=== PATIENT | female | born 1980 | race Caucasian/White ===

== ENCOUNTER 2019-07-25 08:22 | Day surgery (SDC) | payer OTHER ==
[2019-07-25] MEDS ORDERED: CEFAZOLIN SODIUM 1 GM/VIAL ONE (08:51)
[2019-07-25] MEDS ORDERED: GENTAMICIN SULF 80 MG/2ML INJ ONE (08:52)
[2019-07-25] MEDS ORDERED: BACITRACIN 50000 UNIT VIAL ONE (08:52)
[2019-07-25] MEDS ORDERED: NS 0.9% VIAL 0 ML ONE (08:53)
[2019-07-25] MEDS ORDERED: CEFAZOLIN/SWI 1gm 1 GM/10 ML SYR ONE (08:53)
[2019-07-25] MEDS ORDERED: Ringers Lactate 1,000 ML IV ONE ×3 (08:53→12:39)
[2019-07-25] MEDS ORDERED: SCOPOLAMINE HYDROBROMIDE PATCH TD ONE (08:53)
[2019-07-25] MEDS ORDERED: FENTANYL CITR 250 MCG/5 ML ONE (08:55)
[2019-07-25] MEDS ORDERED: LIDOCAINE 2% MPF 5 ML VIAL ONE (08:55)
[2019-07-25] MEDS ORDERED: ROCURONIUM 50 MG/5 ML VIAL IV ONE (08:55)
[2019-07-25] MEDS ORDERED: dexAMETHasone 10 MG/ML VIAL ONE (08:55)
[2019-07-25] MEDS ORDERED: propofoL 200 MG/20 ML VIAL IV ONE (08:55)
[2019-07-25] MEDS ORDERED: MIDAZOLAM HCL 2 MG/2 ML INJ ONE (08:55)
[2019-07-25] MEDS ORDERED: ONDANSETRON 4 MG/2 ML VIAL ONE ×2 (08:56→14:16)
--- OUTSIDE RECORDS SUMMARY | 2019-07-25 09:09 | XMS REPORT | Summary of Care ---
:1980 Author Name Jennifer Garcia M.A. Address Unavailable Unavailable , Care Team Providers Name Role Phone ALEJANDRA Glez, MARY Unavailable Unavailable BROWN Glez, LORNA Unavailable Unavailable DANITZA Glez, SAMANTHA Unavailable Unavailable BASIL MEADOWS AK, TRACEE Unavailable Unavailable Lorna Mason MD Unavailable Unavailable ALEJANDRA MEADOWS [place], MARY HUMPHRIES Unavailable Unavailable Unavailable Unavailable Unavailable Functional Status Name Dates Details Functional status health issues are not documented Status: Name Dates Details Cognitive status health issues are not documented Status: Problems Name Dates Details Paroxysmal supraventricular tachycardia (427.0, I47.1) Status: Active Vitamin D deficiency (268.9, E55.9) Stat us: Active Breast lump on left side at 6 o'clock position (611.72, N63. 20) Status: Active Vaginal bleeding, abnormal (623.8, N93.9) Status: Active Metrorrhagia (626.6, N92.1) Status: Acti ve Bacterial vaginosis (616.10, N76.0) Stat us: Active Encounter for well woman exam with routine gynecologic al exam (V72.31, Z01.419) Status: Active Vaginal discharge (623.5, N89.8) Status: Active Recurrent UTI (599.0, N39.0) Status: Act nghia History of kidney stones (V13.01, Z87.442) Status: Active Bladder pain (788.99, R39.89) Status: Ac tive Dysuria (788.1, R30.0) Status: Active Gross hematuria (599.71, R31.0) Status: Active Interstitial cystitis (595.1, N30.10) St atus: Active IC (interstitial cystitis) (595.1, N30.10) Status: Active Vaginal ulcer (616.89, N76.5) Status: Ac tive Screening for STD (sexually transmitted disease) (V74.5, Z11 .3) Status: Active Herpes (054.9, B00.9) Status: Active Dizziness (780.4, R42) Status: Active Nausea (787.02, R11.0) Status: Active Acute intractable headache, unspecified headache type (784.0 , R51) Status: Active Nasal deformity (738.0, M95.0) Status: A ctive Nasal obstruction (478.19, J34.89) Statu s: Active Nasal septal deviation (470, J34.2) Stat us: Active Closed fracture of nasal bone, initial encounter (802.0, S02 .2XXA) Status: Active Right shoulder pain (719.41, M25.511) St atus: Active Medications Name Dates Details Uribel 118 MG Oral Capsule Take one tablet every 6 hours as needed Quantity: 360 Refills: 3 SAMANTHA BOSCH M.D. Start : 10-Oct-2016 Active valACYclovir HCl - 500 MG Oral Tablet TAKE ONE (1) TABLET(S) BY MOUTH ONCE A DAY. Quantity: 30 Refills: 11 MARY ROBERTS M.D. Start : 10-Jul-2017 Active Ibuprofen 800 MG Oral Tablet Refills: 0 Start : 19-Dec-2018 Active Cyclobenzaprine HCl - 10 MG Oral Tablet Refills: 0 Start : 19-Dec-2018 Active Allergies and Adverse Reactions Name Dates Details No Known Allergies (Allergy) Status: Act nghia Past Medical History Name Dates Details History of Acute recurrent sinusitis (461.9, J01.91) Status: Resolved History of Adjustment disorder with anxiety (309.24, F43.22) Status: Resolved History of asthma (V12.69, Z87.09) Statu s: Resolved History of breast lump (V13.89, Z87.898) Status: Resolved History of Cervicalgia (723.1, M54.2) St atus: Resolved History of fatigue (V13.89, Z87.898) Sta tus: Resolved History of 4 Status: Resolved History of Leg swelling (729.81, M79.89) Status: Resolved History of low back pain (V13.59, Z87.39) Status: Resolved History of Menarche (V21.8) Status: Reso lved History of Neck sprain (847.0, S13.9XXA) Status: Resolved History of Pain, lower leg (729.5, M79.669) Status: Resolved History of Pap smear for cervical cancer screening (V76.2, Z 12.4) Status: Resolved History of renal calculi (V13.01, Z87.442) Status: Resolved Personal history of asthma (V12.69, Z87.09) Status: Resolved Procedures Procedure Dates Details [U] XRAY SHOULDER MIN 2 VWS RIGHT [id number] Date: 19-Dec-2018 History of Section Completed History of Breast Surgery Enlargement Procedure Completed History of section Completed History of Breast augmentation Completed History of Endometrial ablation Complete d Immunization Name Dates Details Fluzone Quadrivalent 0.5 ML Intramuscular Suspension Prefill ed Syringe on: 2017 Family History Name Dates Details Family history of Mitochondrial disease (359.89, E88.40) Comments: Family History Status: Active Name Dates Details Family history of Mitochondrial disease (359.89, E88.40) Status: Active Name Dates Details Family history of asthma (V17.5, Z82.5) Status: Active Family history of Allergy (995.3, T78.40XA) Status: Active Name Dates Details Family history of diabetes mellitus (V18.0, Z83.3) Status: Active Family history of thyroid disease (V18.19, Z83.49) Status: Active Family history of Urinary incontinence (788.30, R32) Status: Active Family history of Fecal incontinence (787.60, R15.9) Status: Active Name Dates Details Family history of Asthma (V17.5) Status: Active Family history of asthma (V17.5, Z82.5) Status: Active Family history of Allergy (995.3, T78.40XA) Status: Active Social History Name Dates Details - Status: Name Dates Details Never smoker Never smoker Vital Signs Date Test Result Details No Known Vitals to report Results Date Description Value Details Results not documented Plan of Care Name Dates Details Planned Observations Planned Goals not documented Interventions Provided Labs/Procedures/Imaging[U] XRAY SHOULDER MIN 2 VWS RIGHT [id number]; To Be Done: 19 Dec 2018 Instructions Name Dates Details Instructions not documented Encounters Appointment; CLAUDIA ALARCON NP On: 06-Jan-2017 15:20 Encounter Diagnosis: Problem not documented Appointment; MARY ROBERTS M.D. On: 08-Feb-2017 14:30 Encounter Diagnosis: Problem not documented Appointment; RENÉE CASTILLO NP On: 14-Sep-2017 13:0 0 Encounter Diagnosis: Problem not documented Appointment; MERARI TIPTON M.D. On: 21-Dec-2017 15:30 Encounter Diagnosis: Problem not documented Appointment; MARY ROBERTS M.D. On: 13-Aug-2018 15:30 Encounter Diagnosis: Problem not documented Appointment; LORNA MASON M.D. On: 19-Dec-2018 14:0 0 Encounter Diagnosis: Problem not documented
--- OUTSIDE RECORDS SUMMARY | 2019-07-25 09:09 | XMS REPORT ---
:1980 Author Organization [facility] t Address [address] [place] [address] Care Team Providers Name Role Phone DR DANUTA Attending Clinician Unavailable BROWN Attending Clinician Unavailable ALEJANDRA Attending Clinician Unavailable DANUTA Attending Clinician Unavailable JONATHAN Attending Clinician Unavailable DORIAN Attending Clinician Unavailable DANITZA Attending Clinician Unavailable UROGYN1 Attending Clinician Unavailable BASIL Attending Clinician Unavailable DR DANUTA Admitting Clinician Unavailable Problems Condition Condition Condition Status Onset Resolution Last Treating Co mments Source Name Details Category Date Date Treatment Clinician Date History of History of Problem Resolve Univers Acute Acute [place] sinus[place] sinus[place] Phys ici ans History of History of Problem Resolve Univers Adjustment Adjustment d it y of disorder disorder [place] with with Physici anxiety anxiety ans Personal Personal Problem Resolve Univ ers history of history of d it y of asthma asthma [place] Physici ans History of History of Problem Resolve Univers fatigue fatigue d ity of [place] Physici ans History of History of Problem Resolve Univers Cervicalgi Cervicalgi d it y of a a [place] Physici ans History of History of Problem Resolve Univers 4 4 d ity of [place] Physici ans History of History of Problem Resolve Univers Leg Leg d ity of swelling swelling [place] Phys[facility] ans History of History of Problem Resolve Univers Menarche Menarche d ity of [place] Physici ans History of History of Problem Resolve Univers Neck Neck d ity of sprain sprain [place] Phys[facility] ans History of History of Problem Resolve Univers Pain, Pain, d ity of lower leg lower leg [place] Phys[place] ans History of History of Problem Active U nivers kidney kidney ity of stones stones [place] Physici ans Paroxysmal Paroxysmal Problem Active U nivers supraventr supraventr it y of icular icular [place] tachycardi tachycardi Ph ysici a a ans Vitamin D Vitamin D Problem Active Uni vers deficiency deficiency it y of [place] Physici ans Breast Breast Problem Active Univers lump on lump on ity of left side left side [place] at 6 at 6 Physici o'clock o'clock ans position position Vaginal Vaginal Problem Active Univers bleeding, bleeding, ity of abnormal abnormal [place] Physici ans Metrorrhag Metrorrhag Problem Active U nivers ia ia ity of [place] Physici ans Bacterial Bacterial Problem Active Uni vers vaginosis vaginosis ity of [place] Phys[facility] ans Vaginal Vaginal Problem Active Univers discharge discharge ity of [place] Physici ans Recurrent Recurrent Problem Active Uni vers UTI UTI ity of [place] Physici ans Bladder Bladder Problem Active Univers pain pain ity of [place] Physici ans Dysuria Dysuria Problem Active Univers ity of [place] Physici ans Gross Gross Problem Active Univers hematuria hematuria ity of [place] Physici ans IC IC Problem Active Univers (interstit (interstit it y of ial ial [place] cystitis) cystitis) Phys ici ans Vaginal Vaginal Problem Active Univers ulcer ulcer ity of [place] Physici ans Screening Screening Problem Active Uni vers for STD for STD ity of (sexually (sexually [place] transmitte transmitte Ph ysici d disease) d disease) an s Herpes Herpes Problem Active Univers ity of [place] Physici ans History of History of Problem Resolve Univers low back low back d ity of pain pain [place] Physici ans Dizziness Dizziness Problem Active Uni vers ity of [place] Physici ans Nausea Nausea Problem Active Univers ity of [place] Physici ans Acute Acute Problem Active Univers intractabl intractabl it y of e e [place] headache, headache, Phys ici unspecifie unspecifie an s d headache d headache type type Nasal Nasal Problem Active Univers deformity deformity ity of [place] Physici ans Nasal Nasal Problem Active Univers obstructio obstructio it y of n n [place] Physici ans Nasal Nasal Problem Active Univers septal septal it[place] of deviation deviation [place] ans Closed Closed Problem Active Univers fracture fracture ity of of nasal of nasal [place] bone, bone, Physici initial initial ans encounter encounter Right Right Problem Active Univers shoulder shoulder ity of pain pain [place] Physici ans Allergies, Adverse Reactions, Alerts This patient has no known allergies or adverse reactions. Family History Family Member Diagnosis Comments Start Date Stop Date Source Unknown Family Family history of Family History University of Member Mitochondrial [place] disease Physicians natural daughter Family history of U niversity of Mitochondrial [place] disease Physicians Grandmother Family history of Univer sity of diabetes mellitus [place] [facility] Grandmother Family history of Univer sity of thyroid disease [place] [facility] Grandmother Family history of Univer sity of Urinary [place] incontinence Physicians Grandmother Family history of Univer sity of Fecal incontinence [place] [facility] Father Family history of Univers ity of Asthma [place] [facility] Father Family history of Univers ity of asthma [place] [facility] Father Family history of Univers ity of Allergy [place] [facility] natural son Family history of Univer sity of asthma [place] [facility] natural son Family history of Univer sity of Allergy [place] [facility] Social History Smoking Status Start Date Stop Date Source Never smoker [facility] [place] [facility] Medications Ordered Filled Start Stop Current Ordering Indication Dosage Frequency Signature Comments Components Source Medication Medication Date Date Medication? Clinician (SIG) Name Name Ibuprofen Ibuprofen 2018-03 Yes Uni vers 800 MG Oral 800 MG Oral 0-09 i ty of Tablet Tablet 00:00: [place] 00 Physici ans Cyclobenzap Cyclobenzap 2018-03 Yes Univers rine HCl - rine HCl - 0-09 ity of 10 MG Oral 10 MG Oral 00:00: [place] Tablet Tablet 00 Physici ans valACYclovi valACYclovi Yes MARY 1 QD TAKE ONE Univers r HCl - 500 r HCl - 500 4-30 HEAPS M.D. (1) ity of MG Oral MG Oral 00:00: [place]T(S) [place] Tablet Tablet 00 BY MOUTH Physici ONCE A ans DAY. Uribel 118 Uribel 118 Yes SAMANTHA Take one Univers MG Oral MG Oral 7-31 DERESKA tablet ity of Capsule Capsule 00:00: M.D. every 6 [place] 00 hours as Physici needed ans Immunizations Ordered Immunization Filled Immunization Date Status Commen ts Source Name Name Fluzone Quadrivalent Unknown Completed Univ ersity of 0.5 ML [facility] Suspension Prefilled Syringe Vital Signs Vital Name Observation Time Observation Value Comments Source BP Systolic 2018-08-13 124 mm[Hg] Location: [facility] 16:02:00 Position: [place] Physician s Sitting BP Diastolic 2018-08-13 75 mm[Hg] Location: [facility] 16:02:00 Position: [place] Physician s Sitting Height 2018-08-13 63 [in_us] [facility] 16:02:00 [place] Phys[facility] s Weight 2018-08-13 146.5 [lb_av] [facility] 16:02:00 [place] Physician s Body Mass Index 2018-08-13 25.95 kg/m2 University o f Calculated 16:02:00 [place] Physician s BP Systolic 2017-12-21 114 mm[Hg] Location: [facility]; [facility] 15:37:00 Position: [place] Physician s Sitting BP Diastolic 2017-12-21 64 mm[Hg] Location: [facility]; [facility] 15:37:00 Position: [place] Physician s Sitting Height 2017-12-21 63 [in_us] University of 15:37:00 [place] Physician s Weight 2017-12-21 144.5 [lb_av] University of 15:37:00 [place] Physician s Body Mass Index 2017-12-21 25.6 kg/m2 University o f Calculated 15:37:00 [place] Physician s Temperature 2017-12-21 97.3 [degF] Method: Oral University of 15:37:00 [place] Physician s Heart Rate 2017-12-21 79 /min Quality: University 15:37:00 Regular [place] Physician s BP Systolic 2017-09-14 114 mm[Hg] University of 13:16:00 [place] Physician s BP Diastolic 2017-09-14 75 mm[Hg] University of 13:16:00 [place] Physician s Height 2017-09-14 63 [in_us] University of 13:16:00 [place] Physician s Weight 2017-09-14 140.375 [lb_av] University o f 13:16:00 [place] Physician s Body Mass Index 2017-09-14 24.87 kg/m2 University o f Calculated 13:16:00 [place] Physician s Temperature 2017-09-14 98 [degF] Method: Oral [facility] 13:16:00 [place] Physician s Heart Rate 2017-09-14 88 /min University of 13:16:00 [place] Physician s BP Systolic 2017-02-08 124 mm[Hg] Location: [facility]; [facility] 14:44:00 Position: [place] Physician s Sitting BP Diastolic 2017-02-08 77 mm[Hg] Location: [facility]; [facility] 14:44:00 Position: [place] Physician s Sitting Height 2017-02-08 63 [in_us] University of 14:44:00 [place] Physician s Weight 2017-02-08 137 [lb_av] University of 14:44:00 [place] Physician s Body Mass Index 2017-02-08 24.27 kg/m2 University o f Calculated 14:44:00 [place] Physician s Procedures Procedure Date / Time Performing Clinician Source Performed [U] XRAY SHOULDER MIN 2 2018-12-19 00:00:00 [facility] VWS RIGHT [id number] Physicians . [facility] - PAP 2018-08-13 00:00:00 [facility] Physicians . [facility] - Affirm VPIII 2017-02-09 00:00:00 [facility] (BV Panel) Physicians . [facility] - GC/Chlamydia 2017-02-09 00:00:00 [facility] Physicians [Q] HIV AB, HIV 1/2, 2017-01-06 00:00:00 [facility] EIA, WITH REFLEXES Physicians [LH] Herpes Simplex 2017-01-06 00:00:00 [facility] Virus 1 and 2 Antibody Physician s IgM [QL] CULTURE, HERPES 2017-01-06 00:00:00 [facility] SIMPLEX VIRUS WITH Physicians TYPING History of University o [facility] Section Physicians History of Breast [facility] Surgery Enlargement Physicians Procedure History of University o [facility] section Physicians History of Breast [facility] augmentation Physicians History of Endometrial [facility] ablation Physicians Encounters Start End Encounter Admission Attending Care Care Encounter Source Date/Time Date/Time Type Type Clinicians Facility Department ID 2018-02-21 Inpatient C MERARI [facility] [id number] 07:30:00 [facility] 2018-12-19 2018-12-19 AppointVICENTA [facility] [id number] Univers 14:00:00 14:00:00 t; LORNA [facility]3] zoraida DASILVA M.D. [facility] Magalys ORTHMAN M.D. [facility] 2018-08-13 2018-08-13 AppointVICENTA Kim [facility] [id number] Univers 15:30:00 15:30:00 t; MARY ROBERTS M.D. [facility] Jyothi HERNANDEZ M.D. [facility] 2017-12-21 2017-12-21 Appointmen MERARI [facility]TP Otorhinolar 4 [id number] Univers 15:30:00 15:30:00 t; Amaris TIPTON yngology - ity zoraida GAGE M.D. [facility] 2017-09-14 2017-09-14 AppointVICENTA Suea [id number] Univers 13:00:00 13:00:00 t; KERLINE CHINCHILLA [facility] ity of [place], [place] KERLINE CHINCHILLA Physi ci ans 2017-02-08 2017-02-08 Appointmen VICENTA ROBERTS Women's [id number] Univers 14:30:00 14:30:00 t; MARY ROBERTS M.D. [place] ity [facility] Amaris Physici ans 2017-01-06 2017-01-06 Appointmen SHAYYCIERRA, [facility] UTP [id number] Univers 15:20:00 15:20:00 t; KERLINE TAYLOR ity [place], [place] KERLINE TAYLOR Physic i ans 2016-11-28 2016-11-28 Appointmen DANITZA, VICENTA YADAV [id number] Univers 14:10:00 14:10:00 t; Amaris SINGH of [place], [place] Amaris SINGH Physi ci ans 2016-11-28 2016-11-28 Appointmen DANITZA, VICENTA UTP [id number] Univers 13:20:00 13:20:00 t; Amaris SINGH [place], [place] Amaris SINGH Physi ci ans 2016-11-16 2016-11-16 Appointmen ALEJANDRA, VICENTA UTP [id number] Univers 13:30:00 13:30:00 t; MARY ROB[facility]. [facility] Physici ans 2016-11-07 2016-11-07 Appointmen DANITZA, VICENTA UTP [id number] Univers 16:30:00 16:30:00 t; Amaris SINGH [place], [place] Amaris SINGH Physi ci ans 2016-11-07 2016-11-07 Appointmen DANITZA, UTP UTP [id number] Univers 16:10:00 16:10:00 t; Amaris SINGH [place], [place] Amaris SINGH Physi ci ans 2016-11-02 2016-11-02 Appointmen ALEJANDRA, VICENTA UTP [id number] Univers 08:00:00 08:00:00 t; MARY [facility]. [facility] 2016-10-26 2016-10-26 Appointmen RAPHAELGLORY, UTP UTP [id number] Univers 13:45:00 13:45:00 t; MARY ROBERTS [facility]. [facility] ans 2016-10-17 2016-10-17 Appointmen UROGYN1, UTP UTP [id number] Univers 14:20:00 14:20:00 t; DERESKA ity of [address] [facility] 2016-09-27 2016-09-27 Appointmen DORIAN, UTP UTP [id number] Univers 15:40:00 15:40:00 t; KERLINE TAYLOR ity [place], [place] KERLINE TAYLOR Physic i ans 2016-09-16 2016-09-16 Appointmen ALEJANDRA, UTP UTP [id number] Univers 09:15:00 09:15:00 t; MARY ROBERTS M.D. [facility] ans 2016-09-05 2016-09-05 Appointmen ALEJANDRA, UTP UTP [id number] Univers 09:00:00 09:00:00 t; MARY ROBERTS M.D. [facility] ans 2016-06-07 2016-06-07 Appointmen ALEJANDRA, UTP UTP [id number] Univers 14:00:00 14:00:00 t; MARY ROBERTS [facility].D. [facility] ans 2016-04-19 2016-04-19 Appointmen BASIL, [facility] UTP [id number] Univers 14:30:00 14:30:00 t; Elver EASLEY M.D. [place] Opal EASLEY M.D. ans 2015-07-01 2015-07-01 Appointmen BASIL, VICENTA UTP [id number] Univers 08:15:00 08:15:00 t; Elver EASLEY M.D. [place] Opal EASLEY M.D. ans Results Test Description Test Time Test Comments Results Result Comments Source [facility] Report 2018-08-13 00:00:00 Test Item Value Reference Range Interpretation Comme nts REPORT (test code = REPORT) See Comment [facility]] CBC (INCLUDES DIFF/PLT)2017-09-14 14:58:01 Test Item Value Reference Range Interpretation Comments WBC (test code = 6690-2) 4.8 {K/CMM} 3.7-10.4 RBC (test code = 789-8) 4.34 {M/CMM} 4.20-5.40 Hgb (test code = 718-7) 13.5 g/dl 12.0-16.0 Hct (test code = 94976-0) 38.6 % 36.0-48.0 MCV (test code = 787-2) 89.0 fL 80.0-98.0 MCH; Above High Threshold (test 31.2 pg 27.0-31.0 code = 785-6) MCHC (test code = 786-4) 35.0 g/dl 32.0-36.0 RDW (test code = 788-0) 13.9 % 11.5-14.5 Platelet (test code = 31780-3) 221 {K/CMM} 133-450 Mean Platelet Volume (test code 8.8 fL 7.4-10.4 = 24762-8) [facility]] [id number] 14:58:01 Test Item Value Reference Range Interpretation Comments Segmented Neutrophils (test code 65.1 % 45.0-75.0 = 75013-3) Monocytes (test code = 50571-0) 8.8 % 2.0-12.0 Lymphocytes (test code = 87044-6) 23.8 % 20.0-40.0 Eosinophils (test code = 51621-0) 1.6 % 0.0-4.0 Basophils (test code = 706-2) 0.7 % 0.0-1.0 Segs-Bands # (test code = 3.1 {K/CMM} 1.5-8.1 83270-8) Lymphocytes # (test code = 1.1 {K/CMM} 1.0-5.5 16121-2) Monocytes # (test code = 26132-9) 0.4 {K/CMM} 0.0-0.8 Eosinophils # (test code = 0.1 {K/CMM} 0.0-0.5 93708-2) [facility]] URINALYSIS, [id number] 14:58:01 Test Item Value Reference Range Interpretation Comments UA Turbidity (test code = 57442-6) Clear Clear UA Spec Grav (test code = 5810-7) 1.013 <=1.030 UA pH (test code = 5803-2) 6.0 5.0-8.0 UA Protein (test code = 65738-1) Negative Negative UA Glucose (test code = 76782-2) Negative Negative UA Ketones (test code = 60662-9) Negative Negative UA Bili (test code = 5770-3) Negative Negative UA Blood (test code = 5794-3) Negative Negative UA Nitrite (test code = 5802-4) Negative Negative UA Leuk Est (test code = 5799-2) Negative Negative UA WBC (test code = 53788-6) <1 0-5 UA Bacteria (test code = 17811-7) Occasional None Seen UA Mucus (test code = 8247-9) Few None Seen UA Sq Epi (test code = 06776-5) Occasional Few UA Color (test code = 5778-6) BLUE UROBILINOGEN (test code = 24663-1) <=1.0 0.1-1.0 [facility]] CMP [id number] 14:58:01 Test Item Value Reference Range Interpretation Comments Sodium Level 137 {mEq/l} 135-145 (test code = 2951-2) Potassium Level 4.2 {mEq/l} 3.5-5.1 (test code = 2823-3) Chloride Level 103 {mEq/l} 95-109 (test code = 2075-0) Carbon Dioxide 27 {mEq/l} 24-32 (test code = 2027-9) AGAP (test code = 11.2 {mEq/l} 10.0-20.0 90527-1) Glucose Lvl (test 79 mg/dl 70-99 Adult refe rence range code = 2345-7) values reflec t the clinical guidel inesof the [place] Diabet es Association. Creatinine Lvl 0.80 mg/dl 0.50-1.40 (test code = 2160-0) Blood Urea 11 mg/dl 7-22 Nitrogen (test code = 3094-0) BUN/Creatinine 14 6-25 Ratio (test code = 3097-3) Total Protein 7.2 g/dl 6.4-8.4 (test code = 2885-2) Albumin Lvl (test 3.8 g/dl 3.5-5.0 code = 1751-7) Globulin (test 3.4 g/dl 2.7-4.2 code = 62109-1) A/G Ratio (test 1.1 0.7-1.6 code = 1759-0) Calcium Level 8.5 mg/dl 8.5-10.5 Total (test code = 18428-2) ALT (test code = 21 u/l 0-65 1743-4) AST (test code = 19 u/l 0-37 48046-0) Bili Total (test 0.4 mg/dl 0.2-1.3 code = 1974-2) Alk Phos (test 61 u/l 39-136 code = 1783-0) eGFR (test code = 94 The eGFR i s calculated 88013-9) {ML/MIN/1.7} using the CKD-E PI formula. In mos t young, healthyindividu als the eGFR will be >9 0 mL/min/1.73m2. The eGFR declines with a ge. AneGFR of 60-89 may be normal in some population s, particularly th e elderly, forwhom the CKD -EPI formula has not been extensively ra idated. Use of the eGFR isnot recommended in the following populations:Ind ividuals with unstable c reatinine concentrations, including patient s and those with seri ous co-morbid conditions.Evelyn ents with extremes in mus keo mass or diet.The darwin a above are obtained fr om the National Kidney Disease Education Progr am(NKDEP) which [place] recommends that when the eGFR is used in patientswith ex tremes of body mass index for purposes of dm g dosing, the eGFR should be multiplied by t he estimated BMI. [facility]] [id number] 14:58:01 Test Item Value Reference Range Interpretation Comments Magnesium Level (test code = 2.3 mg/dl 1.8-2.4 33142-3) [facility]] TSH, 3RD GENERATION W/REFLEX TO FT4 2017-09-14 14:58:01 Test Item Value Reference Range Interpretation Comments TSH (test code = 74879-4) 1.300 {uIU/ml} 0.360-3.740 [facility]] CULTURE, URINE, [id number] 14:58:01 Test Item Value Reference Range Interpretation Comments FINAL REPORT (test code <10,000 CFU/mL Skin = FINAL REPORT) Deanna [facility]. [facility] - [id number] 00:00:00 Test Item Value Reference Range Interpretation Comments GC/Chlamydia REPORT (test code = See Comment GC/Chlamydia REPORT) [facility]. [facility] - HPV High [id number] 00:00:00 Test Item Value Reference Range Interpretation Comments HPV High Risk REPORT (test code = Negative HPV High Risk REPORT) [facility]. [facility] - [id number] 00:00:00 Test Item Value Reference Range Interpretation Comments PAP REPORT (test code = 75857-0) NEGATIVE [facility]. [facility] - HPV High [id number] 00:00:00 Test Item Value Reference Range Interpretation Comments HPV High Risk REPORT (test code = Negative HPV High Risk REPORT) [facility]
[2019-07-25] MEDS ORDERED: LIDOCAINE 1% W/EPI 1:100,000 MDV 20 ML VIAL ONE (09:29)
[2019-07-25] MEDS ORDERED: LIDOCAINE 1% W/EPI 1:100,000 MDV 50 ML VIAL ONE (09:29)
[2019-07-25] MEDS ORDERED: NS 0.9% VIAL 50 ML ONE (09:30)
[2019-07-25] MEDS ORDERED: Phenylephrine HCl 10 MG/ML 1 ML VIAL ONE (09:51)
[2019-07-25] MEDS ORDERED: GLYCOPYRROLATE 0.2 MG/ML SYR ONE (10:11)
[2019-07-25] MEDS ORDERED: FENTANYL CITR 100 MCG/2 ML ONE (11:39)
[2019-07-25] MEDS ORDERED: KETOROLAC 30 MG/ML INJ ONE (13:16)
[2019-07-25] MEDS ORDERED: Mastisol Adhesive Liq ONE (13:18)
[2019-07-25] MEDS ORDERED: HYDROMORPHONE HCL 2 MG/ML inj ONE (14:09)
[2019-07-25] MEDS ORDERED: PROMETHAZINE INJ 25 MG/ML AMP ONE (14:22)
[2019-07-25] MEDS ORDERED: CODEINE 30MG/APAP 300MG TAB ONE (16:28)
[2019-07-25 18:20] VITALS: BP 110/61; TEMP 98; O2SAT 94
--- NOTE | 2019-07-26 09:42 | OP ---
Surgeon: Kobi Gutierrez MD Litigation Assistant: Tacos. Preoperative Diagnosis: Capsular contracture left breast status post prepectoral breast implants. Postoperative Diagnosis: Capsular contracture left breast status post prepectoral breast implants. Procedure Performed: Explantation, left capsulectomy, and breast lift. Anesthesia: General. Procedure In Detail: After satisfactory induction of general anesthesia 1% xylocaine with epinephrin e was use to infiltrate the incision lines in the upper part of the breast bilaterally. Then patient was prepped with Betadine scrub, Betadine paint, dry sterile drapes applied in the usual manner. A 15 blade was used to make an incision. A 42 mm template around the right and left areolas, then solano sverse curvilinear incisions were made. Intervening skin was de-epithelialized with dermabrader or E piCut. Nuñez glands removed with a punch. Then the flap was elevated cephalad. Flap was thinn ed to approximately a centimeter thickness on the right side and by half on the left side. There was very firm capsular contracture on the left side. Flap elevation continued towards the sternum, clav icle, and anterior axillary line. An inferior incision was made and then an incision was made at 12 o'clock position on the left breast, cephalad down to the capsule. Implant was removed with __ then sharp dissection with a scalpel or tenotomy scissors to remove the capsule. It was calcified and quite firm. Patient had on the left side. electrocautery was used for he mostasis and then attention was turned to the right side. and then straps were elevated o n the right breast at 12 o'clock and 1 o'clock position. At 3 o'clock position the straps were then woven in and out the pectoralis major muscle, back to the base of the cone after cone was formed with 2-0 PDS suture. Straps were then elevated, straps were then woven in and out of pectoralis muscle a nd then back to the base of the cone, back to the pectoralis muscle, and back to the base of the cone , tied themselves with 2-0 PDS. This was done from 12 o'clock and 1:30 strap on the right side, and 3 o'clock strap was sewn over the sternum at the 3 o'clock position with 2-0 Ethibond. Mirror image was done on the left side with [place] fascia sutured in place with 3-0 Monocryl, tacking the flap do wn to the periosteum of the ribs . A 10 BEULAH was brought out the axilla. Wound irrigated wi th antibiotic solution. Electrocautery was used for hemostasis and the wounds closed with approximat huy 3 sutures of 3-0 Vicryl were used near the midline of both breasts and then running 3-0 PDS from medial to lateral and lateral to medial, tied in the vertical meridian of the breast. This was done on both sides and patient was sat up. Site for new nipple-areolar complex was marked out. Cored out with a 42 template. Nipples delivered, sewn with interrupted 4-0 PDS, followed by 4-0 PDS running s ubcuticular. Dressings consisted of tincture of benzoin, Steri-Strips, 5 x 5s, fluffs, and Edward wrap. The patient tolerated the procedure well and returned to recovery. DAGMAR/MANDO Voice ID: [id number] Report ID: [id number]
== END 2019-07-25 17:55 | disposition home or self-care (01) ==
LOC: OR 08:22
PROVIDERS: ATTEND Specialist
PROC: 0HPU0JZ Removal of Synthetic Substitute from Left Breast, Open Approach (ICD-10-PCS; 2019-07-25)
PROC: 0H0V0ZZ Alteration of Bilateral Breast, Open Approach (ICD-10-PCS; principal; 2019-07-25 09:00)
DX: T85.44XA Capsular contracture of breast implant, initial encounter (principal); N64.81 Ptosis of breast
CPT/HCPCS: 81025; 88304; 19316; 19371; J2704; J2550; J2370; J1580; J2250; J1170; J3010 ×2; J1100; J0690 ×2; J7120 ×3; J2405 ×2; 88305

== ENCOUNTER 2019-12-12 08:02 | Day surgery (SDC) | payer OTHER ==
[2019-12-12] MEDS ORDERED: SCOPOLAMINE HYDROBROMIDE PATCH TD ONE ×2 (08:36→08:40)
[2019-12-12] MEDS ORDERED: Ringers Lactate 1,000 ML IV ONE ×2 (08:40→10:32)
[2019-12-12] MEDS ORDERED: CEFAZOLIN/SWI 1gm 1 GM/10 ML SYR ONE (08:41)
[2019-12-12] MEDS: EPINEPHRINE/PF 1 MG/ML AMP ONE ×2 (09:20→09:25)
[2019-12-12] MEDS ORDERED: dexAMETHasone 10 MG/ML VIAL ONE (10:31)
[2019-12-12] MEDS ORDERED: DIPHENHYDRAMINE 50 MG/ML VIAL ONE (10:31)
[2019-12-12] MEDS ORDERED: EPINEPHRINE/PF 1 MG/ML AMP ONE ×2 (10:31)
[2019-12-12] MEDS ORDERED: FENTANYL CITR 250 MCG/5 ML ONE (10:31)
[2019-12-12] MEDS ORDERED: KETOROLAC 30 MG/ML INJ ONE (10:31)
[2019-12-12] MEDS ORDERED: ONDANSETRON 4 MG/2 ML VIAL ONE ×2 (10:31→13:48)
[2019-12-12] MEDS ORDERED: MIDAZOLAM HCL 2 MG/2 ML INJ ONE (10:31)
[2019-12-12] MEDS ORDERED: NEOSTIGMINE 1 MG/ML -5 ML ONE (10:40)
[2019-12-12] MEDS ORDERED: GLYCOPYRROLATE 0.2 MG/ML SYR ONE (10:40)
[2019-12-12] MEDS ORDERED: LIDOCAINE 2% MPF 5 ML VIAL ONE (10:40)
[2019-12-12] MEDS ORDERED: propofoL 200 MG/20 ML VIAL IV ONE (10:40)
[2019-12-12] MEDS ORDERED: ROCURONIUM 50 MG/5 ML VIAL IV ONE (10:40)
[2019-12-12] MEDS: HYDROMORPHONE HCL 1 MG/ML INJ ONE ×2 (11:37→11:42)
[2019-12-12] MEDS ORDERED: MEPERIDINE HCL 50 MG/ML ONE (11:46)
[2019-12-12] MEDS ORDERED: PROMETHAZINE INJ 25 MG/ML AMP ONE (11:46)
[2019-12-12] MEDS ORDERED: HYDROMORPHONE HCL 1 MG/ML INJ ONE (11:58)
[2019-12-12] MEDS ORDERED: CODEINE 30MG/APAP 300MG TAB ONE (13:55)
[2019-12-12 14:08] VITALS: BP 101/54; TEMP 97.8; O2SAT 97
--- OUTSIDE RECORDS SUMMARY | 2019-12-18 14:12 | XMS REPORT | Continuity of Care Document ---
:1980 Author Organization [facility] Information [place] Care Team Providers Name Role Phone [facility] VBOX Unavailable Un available Problems Problem Status Onset Classification Date Comments Sourc e Date Reported Z12.31 - ENCNTR Active 12/09/19 MH O PID SCREEN 20 [place] MAMMOGRAM FOR MA N63 - Active 04/27/19 OPID UNSPECIFIED [address] [place] LUMP IN BREAST Asthma Resolved Problem 12/12/2019 no inhalers , OP ID (disorder) no treatments Ca nn, [place] Medications Medication Details Route Status Patient Ordering Order Source Instructions Provider Date ketOROLAC (ANES) IV, ONCE Inactive MH Arias gar [place] [place] propofol (ANES) Route: IV, Inactive MH S ugar Drug form: [place] INJ, ONCE, Stop date: 11/02/16 9:04:00 CDT dexamethasone Route: IV, Inactive MH Sug ar (ANES) Drug form: [place] INJ, ONCE, Stop date: 11/02/16 9:01:00 CDT ondansetron Route: IV, Inactive MH Sugar (ANES) Drug form: [place] INJ, ONCE, Stop date: 11/02/16 9:01:00 CDT Docusate Notes: (Same Inactive MH Sugar as: Colace) [place] (Do Not Crush) Ketorolac 4 days Inactive MH Suga r MEDICATION [place] WASTE Product Size: 30 mg Product Wasted: ___ mg Tramadol Notes: Not to Inactive MH Sugar exceed [place] 400mg/day. (Same As: Ultram) ceFAZolin (ANES) Route: IV, Inactive MH [place] Drug form: [place] INJ, ONCE, Stop date: 11/02/16 8:56:00 CDT fentaNYL (ANES) Route: IV, Inactive MH S ugar Drug form: [place] INJ, ONCE, Stop date: 11/02/16 8:56:00 CDT lidocaine (ANES) Route: IV, Inactive Sugar Drug form: [place] INJ, ONCE, Stop date: 11/02/16 8:56:00 CDT Acetaminophen 1 - 2 tab, Active Suga r 300 MG / Codeine PO, Q4H, PRN 017 [place] Phosphate 30 MG Pain, # 30 Oral Tablet tab, 0 [Tylenol with Refill(s) Codeine #3] Motrin 800 mg 800 mg = 1 Active Suga r oral tablet tab, PO, Q8H, [place] PRN Pain, Take with food, X 30 day, # 90 tab, 0 Refill(s) Oxycodone Notes: (Same Inactive Sugar Hydrochloride 5 as: [place] MG Oral Tablet Roxicodone) Morphine Notes: (Same Inactive Sugar as:MORPhine [place] Sulfate) Ondansetron Notes: (Same Inactive Sug ar as: Zofran) [place] MEDICATION WASTE Product Size: 4 mg Product Wasted: ___ mg Promethazine Notes: (Same Inactive Arias gar as: [place] Phenergan) Hydroxyzine Notes: (Same Inactive Sug ar as: Atarax) [place] Avoid alcohol. Al hydroxide/Mg Notes: Inactive Suga r hydroxide/simeth (aluminum [place] icone 200 mg-200 hydroxide-mag mg-20 mg/5 mL nesium oral suspension hyd-simethico ne [phone]/ 5ml 30 ml ud AMAURI) Oxycodone Notes: (Same Inactive Sugar Hydrochloride 1 as: [place] MG/ML Oral Roxicodone) Solution midazolam (ANES) Route: IV, Inactive Sugar Drug form: [place] SOLN, ONCE, Stop date: 11/02/16 8:51:00 CDT LR 1000 mL INJ Route: IV, Inactive Arias gar (ANES) Total Volume: [place]17 [place] 1,000, Start date: 11/02/16 8:16:00 CDT, Stop date: 11/02/16 9:16:00 CDT Calcium Chloride 1,000 mL, Inactive S ugar 0.0014 MEQ/ML / Rate: 25 [place]17 [place] Potassium ml/hr, Infuse Chloride 0.004 over: 40 hr, MEQ/ML / Sodium Route: IV, Chloride 0.103 Dosing Weight MEQ/ML / Sodium 58.636 kg, Lactate 0.028 Total Volume: MEQ/ML 1,000, Start Injectable date: Solution 11/02/16 6:03:00 CDT, Duration: 30 day, Stop date: 12/02/16 6:02:00 CDT Uribel oral See Active Sugar capsule Instructions, [place] 1 cap po q 6 hrs, 0 Refill(s) cranberry oral 0 Refill(s) Active Arias gar capsule [place] Vitamin D3 2000 2,000 Active Sugar intl units oral IntlUnit = 1 017 Renaldo d capsule cap, PO, Daily, # 100 cap, 3 Refill(s) Allergies, Adverse Reactions, Alerts Substance Category Reaction Severity Reaction Status Date Comments S ource type Reported codeine Assertion Drug Active OPI D allergy Tigist No Known Assertion Drug OP ID Medication allergy Ca nn Allergies Immunizations No Data Provided for This Section Results Order Results Value Reference Date Interpretation Comments Source Name Range URINE U Preg Negative Negative Sugar CHEM (11/02/16 6:05 AM) 017 [facility] Pathology Reports No Data Provided for This Section Diagnostic Reports Report Value Date Source Breast Mammo Scrn CHANG w 12/10/2019 OPID Capo alejandra incl CAD MA BILATERAL DIGITAL SCREENING MAMMOGRAM 3D/2D WITH CAD: 12/10/2019 CLINICAL: /Z12.31 Encounter For Screening Mammogram For Malignant Neoplasm Of Breast. Current study was evaluated with a Leader Tier d Detection (CAD) system. COMPARISON:Comparison is mad e to exams dated: 05/09/2016 mammogram and 10/13/2011 mammogram - [facility]. TECHNIQUE: Digital Breast To mosynthesis was performed and utilized for Interpretation. Current study was also evaluated with a Computer Aided Detection (CAD) system. FINDINGS: There are scattered fibroglandular densities in both breasts. There are diffuse heterogeneous calcifications i n the left breast. There also are multiple lymph nodes in the left axillary tail. No other significant masses, calcifications, or other findings are seen in either breast. IMPRESSION: INCOMPLETE: NEEDS ADDITIONAL IMAGING EVALUATION RECOMMENDATION:The diffuse h eterogeneous calcifications in the left breast are indeterminate. Spot magnification and lateral views as well as a possible ultrasound are recommended. The multiple lymph nodes in the left axillary tail are indeterminate. An ultrasound is recommended. This exam was interpreted at [id number] for [facility]. Danni castellanos/sudeep:12/11/2019 11:20:15 Wood Carving Machine Operator(s): Nena Martin, [facility] Outpatient Imaging Department letter sent: BI-RADS 0 Mammogram BI-RADS: 0 Indeterminate Retroperitoneal Complete EXAM: Retroperitoneal Complete US 10/05 [facility] US HISTORY: recurrent uti - recurrent uti COMPARISON: None FINDINGS: Right kidney: Length and cor tical thickness are 10.8 and 1.9 cm, respectively. No hydronephrosis, suspicious mass, or large shadowing calculus. Left Kidney: Length and jody ical thickness are 11.2 and 3.0 cm, respectively. No hydronephrosis, suspicious mass, or large shadowing calculus. Bladder: No wall thickening, mural nodularity, or suspicious intraluminal echoes are identified. Both ureteral jets are patent. Vascular: Visualized portion s of the IVC are patent. There is no obvious aneurysmal dilatation of the aorta. The origins of the common iliac arteries are not seen sonographically. IMPRESSION: No significant abnormality. Pelvis w Pelvis EXAM: Pelvis w Pelvis Transvaginal US 06/15/2016 [facility] Transvaginal US HISTORY: metrorrhagia COMPARISON: None Technique: Transabdominal a nd Transvaginal Xie scale and color doppler with limited spectral doppler imaging of the uterus and ovaries. Findings: The uterus measure s 9.2 x 3.7 x 5.4 cm. The endometrial stripe measures 0.4 cm. Small endometrial calcification measures 2 mm. There is a 2.5 x 1.6 x 1.9 cm intramural fibroid in the anterior uterine body. The right ovary measures 3.6 x 2.8 x 2.8 cm. The left ovary measures 3.1 x 1.9 x 1.5 cm. Multiple ovarian follicles are noted. Dominant follicle in the right ovary measures up to 2.6 cm. There is rojas l doppler flow. No large masses are seen in the bilateral adnexa. There is no free fluid. The bladder is distended and grossly unremarkabl e. IMPRESSION: Uterine fibroid. Breast Complete Chang US - BREAST COMPLETE CHANG US 05/09/2016 OPID [place] ULTRASOUND OF BOTH BREASTS AND BOTH AXILLA: 05/09 CLINICAL: N63 Unspecified Lump In Breast. Comparison is made to exams dated: 05/09/2016 mammogram, 10/13/2011 ultrasound and 10/13/2011 mammogram - [facility]. Real-time ultrasound of both breasts and both axilla was performed. Xie scale images of the real-time examination were reviewed. No abnormalities were seen sonographically in ei ther breast or either axilla. IMPRESSION: NEGATIVE There is no sonographic evidence of malignancy. There is no abnormality seen in the left breast to correspond with the palpable abnormality at 6 o'clock, however clinical followup is recommended. There is no abnormality seen in the right breast to correspond with the 'lumpiness' without a discrete palpable abnormality, however clinical followup is recommended. Follow-up with ACR/ACS guide lines. Findings and recommendations were discussed with the patient at the time of the examination. Professional services are pr ovided by the [facility] Division of Diagnostic Imaging. Azam Bui M.D. ks/:05/09/2016 09:13:57 Wood Carving Machine Operator: Natalya Abarca, [facility] This exam was dictated and i nterpreted by [id number] at [facility]. letter sent: Bilateral Benign Ultrasound BI-RADS: 1 Negative Breast Mammo Diag CHANG w - BREAST MAMMO DIAG CHANG W ALEJANDRA INCL CAD MA 05/09/2016 OPID [place] alejandra incl CAD MA BILATERAL DIGITAL DIAGNOSTIC MAMMOGRAM 3D/2D WITH CAD: 05/09/2016 CLINICAL: Routine. 2D digital mammographic imag es and 3D digital tomosynthesis images were obtained in the CC and MLO projections. Current study was evaluated with a Leader Tier d Detection (CAD) system. Comparison is made to exam d ated: 10/13/2011 mammogram - [facility]. There are scattered fibroglandular densities in both breasts. Bilateral breast implants are intact. No significant masses, calci fications, or other findings are seen in either breast. IMPRESSION: INCOMPLETE: NEEDS ADDITIONAL IMAGING EVALUATION There is no abnormality seen in either breast to correspond with the palpable abnormality, however ultrasound is recommended. The patient is scheduled for the same day ultrasound examination. Professional services are pr ovided by the [facility] Division of Diagnostic Imaging. Azam Bui M.D. ks/:05/09/2016 08:51:07 Wood Carving Machine Operator: Skylar Calderón RT(R)(M), [facility] This exam was dictated and i nterpreted by [id number] at [facility]. Mammogram BI-RADS: 0 Indeterminate Consultation Notes No Data Provided for This Section Discharge Summaries No Data Provided for This Section History and Physicals No Data Provided for This Section Vital Signs Vital Sign Value Date Comments Source Systolic (mm Hg) 124 11/02/2016 [place] Diastolic (mm Hg) 85 11/02/2016 MH [place] L and Respitory Rate 14 11/02/2016 MH [place] Systolic (mm Hg) 121 11/02/2016 MH [place] Diastolic (mm Hg) 90 11/02/2016 MH [place] L and Respitory Rate 17 11/02/2016 MH [place] Systolic (mm Hg) 120 11/02/2016 MH [place] Diastolic (mm Hg) 79 11/02/2016 MH [place] L and Respitory Rate 14 11/02/2016 [place] BMI Calculated 23.65 11/02/2016 [place] Height 160.02 cm 11/02/2016 [place] Weight 60.568 11/02/2016 [place] Height 160.02 cm 10/25/2016 [place] BMI Calculated 22.9 10/25/2016 MH [place] Weight 58.636 10/25/2016 [place] BMI Calculated 22.9 10/25/2016 [place] Weight 58.636 10/25/2016 [place] Height 160.02 cm 10/25/2016 [place] Encounters Location Location Encounter Encounter Reason Attending ADM DC Stat us Source Details Type Number For Provider Date Date Visit [facility] Outpt Diag [id number] [place] 05/09 05/10 [facility] Outpatient Services [place]akov [place] [facility] [place] [facility] Outpt Diag [id number] Sumanth 06/15 06/16 MH [facility] [id number] Mallory 10/05 10/06 [facility] Outpatient [facility] [place] [facility] [id number] Sumanth 11/02 11/02 [place] [facility] Outpatient [id number] Sumanth 12/09 12/10 MH [facility] Outpatient [facility] Capo Procedures Procedure Code Date Perfomer Comments Source Hysteroscopy<sup>1 [id number] 11/02/2016 RASTA OPI D </sup> ABLATION, Cap[place] Hysteroscopy [place] section [id number] 03/13/2007 OP[facility] [place] Breast [id number] 03/13/2001 OPID augmentation Capo [place] Assessment and Plan No Data Provided for This Section Plan of Care No Data Provided for This Section Social History Social History Date Source Social History TypeResponse 10/25/2016 Sugar Renaldo d Substance Abuse Use: None. Exercise Exercise duration: 0. Employment/School Status: Employed. Alcohol Current, Type Wine. Frequency: 1-2 times per week. Smoking Status Never smoker; Exposure to Tobacco Smoke None; Cigarette Smoking Last 365 Days No; Reg Smoking Cessation Counseling No Social History TypeResponse 10/25/2016 OPID Herm reynaldo Alcohol Current, Type Wine. Frequency: 1-2 times per week. Employment/School Status: Employed. Exercise Exercise duration: 0. Substance Abuse Use: None. Smoking Status Never smoker; Exposure to Tobacco Smoke None; Cigarette Smoking Last 365 Days No; Reg Smoking Cessation Counseling No entered on: 10/25/16 No data available for this 2016 OPID [place] a section No data available for this 05/10/2016 [facility] [place] section Family History No Data Provided for This Section Advance Directives No Data Provided for This Section Functional Status No Data Provided for This Section
--- OUTSIDE RECORDS SUMMARY | 2019-12-18 14:12 | XMS REPORT | Clinical Summary ---
:1980 Author Organization [facility] Address [address] [place] [address] Care Team Providers Name Role Phone Asked, No Pcp Primary Care Provider Unavailable Allergies Not on File Medications Not on file Active Problems Not on file Encounters Date Type Specialty Care Team Description 12/10/2019 Lab Lab Kobi Gutierrez Hypomastia ( Primary Dx) MD Kaushik 12/10/2019 Travel 10/07/2019 Lab Lab Lion Hobson Shortne ss of breath 10/03/2019 Orders Only Cardiology Lion Hobson Shortne ss of breath (Primary Dx) 09/10/2019 Community Orders ADMIN Alonzo Radford MD 09/10/2019 Transcribe Orders Access Santos Segura of breath MD Charles (Primary Dx) after 12/17/2018 Social History Tobacco Use Types Packs/Day Years Used Date Never Assessed Sex Assigned at Date Recorded Female 09/11/2019 2:23 PM CDT COVID-19 Exposure Response Date Recorded In the last month, have you been in contact with No / Unsure 12/10/2019 10:52 AM CDT someone who was confirmed or suspected to have Coronavirus / COVID-19? Last Filed Vital Signs Not on file Plan of Treatment Health Maintenance Due Date Last Done Comments CERVICAL CANCER SCREENING 10/07/1999 INFLUENZA VACCINE 10/12/2019 Procedures Procedure Name Priority Date/Time Associated Comments Diagnosis COVID-19 QUALITATIVE Routine 12/10/2019 2:17 Hypomastia Res ults for this PCR PM CDT procedure are i n the results section. COVID-19 QUALITATIVE Routine 10/07/2019 11:03 Shortness of ehsan ath Results for this PCR AM CDT procedure are i n the results section. COVID-19 QUALITATIVE Routine 09/10/2019 5:12 Shortness of ehsan ath Results for this PCR PM CDT procedure are i n the results section. after 12/17/2018 Results COVID-19 qualitative PCR (12/10/2019 2:17 PM CDT)Only the most recent of3 resultswithin the time period is included. Interpretation Negative results do not prec lude 2019-nCoV infection and should not be used as the sole basis for treatment or other patient management decisions. Negative results must be combined with clinical observations, patient history, and epidemiological [facility] information. [facility] COVID-19 qualitative Not-Detected Not-Detecte [facility] PCR result d [facility] COVID-19 qualitative See link below for [facility] PCR PDF Lab [facility] ReportComment: Case HOSPITAL Number: [id number] Specimen Nasal swab Performing Organization Address City/State/ZIP Code Phon e Number [facility] DEPARTMENT OF PATHOLOGY AND [address] [place], [place] [address] [facility] [address] [address] [facility] after 12/17/2018 Advance Directives For more information, please contact: [phone] Type Date Recorded Patient Pantry Chef Explanati on Advance Directives, Living Will and Medical Power of Automotive [employer]
--- OUTSIDE RECORDS SUMMARY | 2019-12-18 14:14 | XMS REPORT | Summary of Care ---
:1980 Author Name MARY ROBERTS M.D. Address Unavailable Unavailable , Care Team Providers Name Role Phone ALEJANDRA Glez, MARY Unavailable Unavailable DANITZA Glez, SAMANTHA Unavailable Unavailable BASIL MEADOWS [place], [place]ACEE Unavailable Unavailable Lorna Mason MD Unavailable Unavailable BASIL MEADOWS [place], TRACEE Unavailable Unavailable ALEJANDRA MEADOWS DE, MARY HUMPHRIES Unavailable Unavailable Unavailable Unavailable Unavailable Functional Status Name Dates Details Functional status health issues are not documented Status: Name Dates Details Cognitive status health issues are not documented Status: Problems Name Dates Details Paroxysmal supraventricular tachycardia (427.0, I47.1) Status: Active Vitamin D deficiency (268.9, E55.9) Stat us: Active Breast lump on left side at 6 o'clock position (611.72, N63. 25) Status: Active Vaginal bleeding, abnormal (623.8, N93.9) Status: Active Metrorrhagia (626.6, N92.1) Status: Acti ve Bacterial vaginosis (616.10, N76.0) Stat us: Active Encounter for well woman exam with routine gynecologic al exam (V72.31, Z01.419) Status: Active Vaginal discharge (623.5, N89.8) Status: Active Recurrent UTI (599.0, N39.0) Status: Act mono History of kidney stones (V13.01, Z87.442) Status: [...] shoulder pain (719.41, M25.511) St atus: Active Well woman exam with routine gynecological exam (V72.31, Z01 .419) Status: Active Visit for screening mammogram (V76.12, Z12.31) Status: Active Medications Name Dates Details Uribel 118 MG Oral Capsule Take one tablet every 6 hours as needed Quantity: 360 Refills: 3 SAMANTHA BOSCH M.D. Start : 10-Oct-2016 Active valACYclovir HCl - 500 MG Oral Tablet Take one (1) tablet(s) by mouth daily. Quantity: 30 Refills: 11 MARY ROBERTS M.D. Start : 10-Jul-2017 Active Allergies and Adverse Reactions Name Dates Details No Known Allergies (Allergy) Status: Act mono Past Medical History Name Dates Details History [...] Z87.09) Status: Resolved Procedures Procedure Dates Details MA Digital Mammo Screening Chang G0202 Date: 05-Dec-2019 History of Section Completed History of Breast [...] Details - Status: Name Dates Details Never smoked tobacco (finding) Never smoked tobacco (finding) Vital Signs Date Test Result Details 90-[id number]:07 Systolic blood pressure 127 mm[Hg] Status: Comments: Location: LUE; Position: Sitting Diastolic blood pressure 81 mm[Hg] Status: Comment s: Location: LUE; Position: Sitting Body height 63 in Status: Weight 148.375 lb Status: Body mass index (BMI) [Ratio] 26.28 kg/m2 Status: Body surface area Derived from formula 1.7 m2 S tatus: Body temperature 97 f Status: Comments: Me thod: Temporal Physical Findings 0 Status: Comments: Al cohol Screen - How many times in the past yr have you had 5 (for M) or 4 (for F) or 4 (for all > 65yrs) or more drinks in a day? Results Date Description Value Details :00 [QL] LIPID PANEL Comments: TEST NOT P ERFORMED No suitable specimen received. CHOLESTEROL, TOTAL TNP mg/dl Comments: PEDRO T NOT PERFORMED No suitable specimen received. HDL CHOLESTEROL TNP mg/dl Comments: TEST N OT PERFORMED No suitable specimen received. TRIGLYCERIDES TNP mg/dl Comments: TEST N OT PERFORMED No suitable specimen received. LDL-CHOLESTEROL TNP {MG/DL__CAL} Comments: TEST NOT PERFORMED No suitable specimen received. CHOL/HDLC RATIO TNP {CALC} Comments: TEST N OT PERFORMED No suitable specimen received. NON HDL CHOLESTEROL TNP {MG/DL__CAL} Comments: TEST NOT PERFORMED No suitable specimen received. 49-Usq-01552:00 [Q] HIV-1/2 Antigen and Antibodies, Four th Generation, with Reflexes HIV AG/AB, 4TH GEN TNP (Normal) Comments: PEDRO T NOT PERFORMED No suitable specimen received. 94-Vgh-09494:00 [QL] CMP W/EGFR GLUCOSE TNP mg/dl Comments: TEST N OT PERFORMED No suitable specimen received. 31-Vdi-79431:00 [QL] CBC (INCLUDES DIFF/PLT) WHITE BLOOD CELL COUNT TNP {Thousand/u} Comment s: TEST NOT PERFORMED No suitable specimen received. 23-Qlq-69918:00 [Q] HEPATITIS B SURFACE ANTIGEN W/REFL C ONFIRM HEPATITIS B SURFACE ANTIGEN TNP (Normal) Comm ents: TEST NOT PERFORMED No suitable specimen received. 16-Zkv-69626:00 [QL] HEPATITIS C ANTIBODY HEPATITIS C ANTIBODY TNP (Normal) Comments: T EST NOT PERFORMED No suitable specimen received. 87-Gnx-17146:00 [QL] BV/ VAGINITIS PANEL DNA PROBE AFFIR M TRICHOMONAS: NOT DETECTED (Normal) Range: N OT DETECTED GARDNERELLA: NOT DETECTED (Normal) Range: N OT DETECTED JHONY: NOT DETECTED (Normal) Range: N OT DETECTED 59-Tya-51335:00 [QL] T4, FREE T4, FREE TNP ng/dl Comments: TEST N OT PERFORMED No suitable specimen received. :00 [QL] TSH, 3RD GENERATION TSH TNP {MIU/L} Comments: TEST N OT PERFORMED No suitable specimen received. : [QL] HEMOGLOBIN A1c HEMOGLOBIN A1c TNP {%_of_total} Comments: TEST NOT PERFORMED No suitable specimen received. :00 [Q] CHLAMYDIA/N. GONORRHOEAE RNA, TMA CHLAMYDIAN TRACHOMATIS RNA, NOT DETECTED (Norm al) Range: NOT DETECTED TMA UROGENITAL NEISSERIA GONORRHOEAE RNA, NOT DETECTED (Deepa l) Range: NOT DETECTED TMA UROGENITAL .. Comments: The an alytical performance characteristics of thisassay, when used to test SurePath(TM) specimens have beendetermined by [employer]. The modifications havenot been cleared or approved by the FDA. This assay hasb een validated pursuant to the CLIA regulations and isused for clinical purposes. For additional information, please refer tohttps://education.Indochino/faq/DSL868(This link is being provided for information/educational purposes only.) :00 [Q] RPR (MONITOR) W/REFL TITER RPR (MONITOR) W/REFL TITER (REFL) TNP (Normal) Comments: TEST NOT PERFORMED No suitable specimen received. :45 [QL] LIPID PANEL CHOLESTEROL, TOTAL 139 mg/dl (Normal) Range: <2 00 HDL CHOLESTEROL 52 mg/dl (Normal) Range: > OR = 50 TRIGLYCERIDES 45 mg/dl (Normal) Range: <150 LDL-CHOLESTEROL 74 {MG/DL__CAL} (Normal) Commen ts: Reference range: <100 Desirable range <100 mg/dL for primary prevention; <70 mg/dL for patients with CHD or diabetic patients with > or = 2 CHD risk factors. LDL-C is now calculated using julia melgoza calculation, which is a validated novel method providing better accuracy than the Friedewald equation in the estimation of LDL-C. Reilly DE LA PAZ et al. JLUIS. 2013;310(19): 8235-9858 (http ://education.Kinvey/faq/SZD878) CHOL/HDLC RATIO 2.7 {CALC} (Normal) Range: <5.0 NON HDL CHOLESTEROL 87 {MG/DL__CAL} (Normal) Ra nge: <130 Comments: For pa nguyennts with diabetes plus 1 major ASCVD risk factor, treating to a non-HDL-C goal of <100 mg/dL (LDL-C of <70 mg/dL) is considered a therapeutic option. :45 [Q] HIV-1/2 Antigen and Antibodies, Four th Generation, with Reflexes HIV AG/AB, NON-REACTIVE Range: NON-REACT MONO 4TH GEN (Normal) Comments: HIV-1 antigen and HIV-1/HIV-2 antibodies were notdetected. There is no laboratory evidence of HIVinfection. PLEASE NOTE: This information has been disclosed toyou from records whose confidentiality may beprotected by [facility] law. If your state requires suchprotection, then the state law prohibits you frommaking any further disclosure of the informationwithout the specific written consent of the persont o whom it [facility], or as otherwise permitted by law.A general authorization for the release of medical orother information is NOT sufficient for this purpose. For additional information please refer t ohttp://educatio n.Uplogix.StartMe/faq/QYP962(This link is being provided for informational/educational purposes only.) The performance of this assay has not been clinicallyvalidated in patients less than 2 years old. :45 [QL] CMP W/EGFR GLUCOSE 84 mg/dl (Normal) Range: 65-99 Comments: Fastin g reference interval UREA NITROGEN (BUN) 12 mg/dl (Normal) Range: 7- 25 CREATININE 0.80 mg/dl (Normal) Range: 0.50 -1.10 eGFR NON-AFR. [place] 92 {ML/MIN/1.7} (Normal) Range: > OR = 60 eGFR 106 {ML/MIN/1.7} (Normal) Range: > OR = 60 BUN/CREATININE RATIO NOT APPLICABLE {CALC} Rang e: 6-22 SODIUM 139 mmol/L (Normal) Range: 135- 146 POTASSIUM 4.6 mmol/L (Normal) Range: 3.5- 5.3 CHLORIDE 104 mmol/L (Normal) Range: 98-1 10 CARBON DIOXIDE 27 mmol/L (Normal) Range: 20-32 CALCIUM 9.3 mg/dl (Normal) Range: 8.6-1 0.2 PROTEIN, TOTAL 6.9 g/dl (Normal) Range: 6.1-8. 1 ALBUMIN 4.3 g/dl (Normal) Range: 3.6-5. 1 GLOBULIN 2.6 {G/DL__CALC} (Normal) Range : 1.9-3.7 ALBUMIN/GLOBULIN RATIO 1.7 {CALC} (Normal) Rang e: 1.0-2.5 BILIRUBIN, TOTAL 0.5 mg/dl (Normal) Range: 0.2- 1.2 ALKALINE PHOSPHATASE 52 u/l (Normal) Range: 31- 125 AST 19 u/l (Normal) Range: 10-30 ALT 13 u/l (Normal) Range: 6-29 :45 [QL] CBC (INCLUDES DIFF/PLT) WHITE BLOOD CELL COUNT 3.9 {Thousand/u} (Normal ) Range: 3.8-10.8 RED BLOOD CELL COUNT 4.84 {Million/uL} (Normal) Range: 3.80-5.10 HEMOGLOBIN 13.6 g/dl (Normal) Range: 11.7- 15.5 HEMATOCRIT 42.0 % (Normal) Range: 35.0-45. 0 MCV 86.8 fL (Normal) Range: 80.0-10 0.0 MCH 28.1 pg (Normal) Range: 27.0-33 .0 MCHC 32.4 g/dl (Normal) Range: 32.0- 36.0 RDW 13.1 % (Normal) Range: 11.0-15. 0 PLATELET COUNT 241 {Thousand/u} (Normal) Range : 140-400 MPV 10.6 fL (Normal) Range: 7.5-12. 5 ABSOLUTE NEUTROPHILS 2079 {cells/uL} (Normal) R miguelito: 2413-6587 ABSOLUTE LYMPHOCYTES 1154 {cells/uL} (Normal) R miguelito: 850-3900 ABSOLUTE MONOCYTES 417 {cells/uL} (Normal) Rang e: 200-950 ABSOLUTE EOSINOPHILS 218 {cells/uL} (Normal) Ra nge: 15-500 ABSOLUTE BASOPHILS 31 {cells/uL} (Normal) Range : 0-200 NEUTROPHILS 53.3 % (Normal) LYMPHOCYTES 29.6 % (Normal) MONOCYTES 10.7 % (Normal) EOSINOPHILS 5.6 % (Normal) BASOPHILS 0.8 % (Normal) 95-Ymw-40073:45 [Q] HEPATITIS B SURFACE ANTIGEN W/REFL C ONFIRM HEPATITIS B SURFACE ANTIGEN NON-REACTIVE (Norm al) Range: NON-REACTIVE :45 [QL] HEPATITIS C ANTIBODY HEPATITIS C ANTIBODY NON-REACTIVE (Normal) Ran ge: NON-REACTIVE SIGNAL TO CUT-OFF 0.04 (Normal) Range: <1.00 Comments: HCV an tibody was non-reactive. There is no laboratory evidence of HCV infection. In most cases, no further action is required. However,if recent HCV exposure is suspected, a test for HCV RNA(test code 3 5645) is suggest ed. For additional information please refer tohttp://education.Indochino/faq/PKA86v1(This link is being provided for informational/educational purposes only.) :45 [QL] T4, FREE T4, FREE 1.0 ng/dl (Normal) Range: 0.8-1 .8 :45 [QL] TSH, 3RD GENERATION TSH 1.53 {MIU/L} (Normal) Comments: Reference Range > or = 20 Years 0.40-4.50 Ranges First trimester 0.26-2.66 Second trimester 0.55-2.73 Third trimester 0.43-2.91 :45 [QL] HEMOGLOBIN A1c HEMOGLOBIN A1c 5.3 {%_of_total} (Normal) Range : <5.7 Comments: For th e purpose of screening for the presence ofdiabetes: <5.7% Consistent with the absence of diabetes5.7-6.4% Consistent with increased risk for diabetes (prediabetes)> or =6 .5% Consistent with diabetes This assay result is consistent with a decreased riskof diabetes. Currently, no consensus exists regarding use ofhemoglobin A1c for diagnosis of diabetes in children. Accor ding to [place] Diabetes Association (ADA)guidelines, hemoglobin A1c <7.0% represents optimalcontrol in non- diabetic patients. Differentmetrics may apply to specific patient populations. Standards of Medical Care in Diabetes(ADA). :45 [Q] RPR (MONITOR) W/REFL TITER Comments: REPORT COMMENT:FASTING:YES RPR (MONITOR) W/REFL TITER (REFL) NON-REACTIVE (Normal) Range: NON-REACTIVE 12-[id number]:28 MA Digital Mammo Screen Chang w noemi G0202 Digital Mammo Screen Chang SEE NOTES Comment s: BILATERAL DIGITAL SCREENING MAMMOGRAM 3D/2D WITH CAD: 12/10/2019CLINICAL: /Z12.31 Encounter For Screening Mammogram For Malignant Neoplasm OfBreast. Current study was evaluated with a Computer Aided Dete MA w noemi ction (CAD) syst em. COMPARISON:Comparison is made to exams dated: 05/09/2016 mammogram and 10/13/2011mammogram - [facility]. TECHNIQUE: Digital Breast Tomosynthesis wa s performed and utilized forInterpretation. Current study was also evaluated with a Computer AidedDetection (CAD) system.FINDINGS:There are scattered fibroglandular densities in both breasts. There are diffuse heteroge neous calcifications in the left breast. There also are multiple lymph nodes in the left axillary tail. No other significant masses, calcifications, or other findings are seen ineither b reast. IMPRESSIO N: INCOMPLETE: NEEDS ADDITIONAL IMAGING EVALUATIONRECOMMENDATION:The diffuse heterogeneous calcifications in the left breast areindeterminate. Spot magnification and lateral views as we ll as a possible ultrasound are recommended. The multiple lymph nodes in the left axillary tail are indeterminate. Anultrasound is recommended. This exam was interpreted at [id number] for [facility] Breast C enter. Danni Haddad M.D. hh/penrad:12/11/2019 11:20:15 Boxcar Weigher(s): [facility]patientIm[facility] Departmentletter sent: BI-RADS 0 Mammogram BI-RADS: 0 Indete rminate--Read by : Danni Haddad MD PHDDictated Date/time: 12/11/19 11:20Electronically Signed by: Danni Haddad MD PHD 12/10/2010:20FINAL REPORT Plan of Care Name Dates Details Planned Observations Planned Goals not documented Instructions Name Dates Details Instructions not documented Encounters Appointment; MERARI TIPTON M.D. On: 21-Dec-2017 15:30 Encounter Diagnosis: Problem not documented Appointment; MARY ROBERTS M.D. On: 13-Aug-2018 15:30 Encounter Diagnosis: Problem not documented Appointment; LORNA MASON M.D. On: 19-Dec-2018 14:0 0 Encounter Diagnosis: Problem not documented Appointment; MARY ROBERTS M.D. On: 05-Dec-2019 9:00 Encounter Diagnosis: Problem not documented
--- OUTSIDE RECORDS SUMMARY | 2019-12-18 14:14 | XMS REPORT | Summary of Care ---
:1980 Author Name Siobhan Kerns R.N. Address Unavailable Unavailable , Care Team Providers Name Role Phone ALEJANDRA Glez, MARY Unavailable Unavailable DANITZA Glez, SAMANTHA Unavailable Unavailable BASIL MEADOWS [place], TRACEE Unavailable Unavailable Lorna Mason MD Unavailable Unavailable BASIL MEADOWS MO, TRACEE Unavailable Unavailable ALEJANDRA MEADOWS MO, MARY HUMPHRIES Unavailable Unavailable Unavailable Unavailable Unavailable [...] IC (interstitial cystitis) (595.1, N30.10) Status: Active Screening for STD (sexually transmitted disease) (V74.5, Z11 .3) Status: Active Vaginal ulcer (616.89, N76.5) Status: Ac tive Herpes (054.9, B00.9) Status: Active Dizziness (780.4, [...] tablet(s) by mouth daily. Quantity: 30 Refills: 0 MARY ROBERTS M.D. Start : 10-Jul-2017 Active [...] Z87.09) Status: Resolved Procedures Procedure Dates Details History of Section Completed History of Breast Surgery Enlargement Procedure Completed History of section Completed History of Breast augmentation Completed History of Endometrial ablation Complete d Immunization Name Dates Details Fluzone Quadrivalent 0.5 ML Intramuscular Suspension Prefill ed Syringe on: 2018 Family History Name Dates Details Family history [...] (finding) Vital Signs Date Test Result Details No Known Vitals to report Results Date Description Value Details Results not documented Plan of Care Name Dates Details Planned Observations Planned Goals not documented Interventions Provided Medication ChangesvalACYclovir HCl - 500 MG Oral Tablet - Renew Instructions Name Dates Details Instructions not documented Encounters Appointment; MERARI TIPTON M.D. On: 21-Dec-2017 15:30 Encounter Diagnosis: Problem not documented Appointment; MARY ROBERTS M.D. On: 13-Aug-2018 15:30 Encounter Diagnosis: Problem not documented Appointment; LORNA MASON M.D. On: 19-Dec-2018 14:0 0 Encounter Diagnosis: Problem not documented
--- OUTSIDE RECORDS SUMMARY | 2019-12-18 14:14 | XMS REPORT | Summary of Care ---
:1980 Author Name MARY ROBERTS M.D. Address Unavailable Unavailable , Care Team Providers Name Role Phone ALEJANDRA Glez, MARY Unavailable Unavailable DANITZA Glez, SAMANTHA Unavailable Unavailable BASIL MEADOWS [place], TRACEE Unavailable Unavailable Lorna Mason MD Unavailable Unavailable BASIL MEADOWS [place], TRACEE Unavailable Unavailable ALEJANDRA MEADOWS [place], MARY HUMPHRIES Unavailable Unavailable Unavailable Unavailable Unavailable [...] (finding) Vital Signs Date Test Result Details 71-Hxn-31152:07 Systolic blood pressure 127 mm[Hg] Status: Comments: [...] TEST NOT PERFORMED No suitable specimen received. 62-Tiv-98350:00 [Q] HIV-1/2 Antigen and Antibodies, Four th Generation, with Reflexes HIV AG/AB, 4TH GEN TNP (Normal) Comments: PEDRO T NOT PERFORMED No suitable specimen received. 53-Enp-77940:00 [QL] CMP W/EGFR GLUCOSE TNP mg/dl Comments: TEST N OT PERFORMED No suitable specimen received. 42-Evh-26907:00 [QL] CBC (INCLUDES DIFF/PLT) WHITE BLOOD CELL COUNT TNP {Thousand/u} Comment s: TEST NOT PERFORMED No suitable specimen received. 10-Boz-86769:00 [Q] HEPATITIS B SURFACE ANTIGEN W/REFL C ONFIRM HEPATITIS B SURFACE ANTIGEN TNP (Normal) Comm ents: TEST NOT PERFORMED No suitable specimen received. 83-Gpu-49065:00 [QL] HEPATITIS C ANTIBODY HEPATITIS C ANTIBODY TNP (Normal) Comments: T EST NOT PERFORMED No suitable specimen received. 95-Hdz-85912:00 [QL] BV/ VAGINITIS PANEL DNA PROBE AFFIR M TRICHOMONAS: NOT DETECTED (Normal) Range: N OT DETECTED GARDNERELLA: NOT DETECTED (Normal) Range: N OT DETECTED JHONY: NOT DETECTED (Normal) Range: N OT DETECTED 42-Res-56306:00 [QL] T4, FREE T4, FREE TNP ng/dl [...] to test SurePath(TM) specimens have beendetermined by [employer]. The modifications havenot been cleared or approved by the FDA. This assay hasb een validated pursuant to the CLIA regulations and isused for clinical purposes. For additional information, please refer tohttps://education.Bitstamp/faq/VDY137(This link is being provided for information/educational purposes [...] DE LA PAZ et al. JLUIS. 2013;310(19): 6085-4228 (http ://education.AndroBioSys/faq/ZEI785) CHOL/HDLC RATIO 2.7 {CALC} (Normal) Range: <5.0 [...] from records whose confidentiality may beprotected by [facility] law. If your state requires suchprotection, then the state law prohibits you frommaking any further disclosure of the informationwithout the specific written consent of the persont o whom it [facility], or as otherwise permitted by law.A general authorization for the release of medical orother information is NOT sufficient for this purpose. For additional information please refer t ohttp://educatio n.Clearleap.[employer]/faq/QII229(This link is being provided for informational/educational purposes only.) The performance of this assay has not been clinicallyvalidated in patients less than 2 years old. :45 [QL] CMP W/EGFR GLUCOSE 84 mg/dl (Normal) Range: 65-99 Comments: Fastin g reference interval UREA NITROGEN (BUN) 12 mg/dl (Normal) Range: 7- 25 CREATININE 0.80 mg/dl (Normal) Range: 0.50 -1.10 eGFR NON-AFR. AFGHAN 92 {ML/MIN/1.7} (Normal) Range: > OR = [...] ABSOLUTE NEUTROPHILS 2079 {cells/uL} (Normal) R miguelito: 3516-0775 ABSOLUTE LYMPHOCYTES 1154 {cells/uL} (Normal) R miguelito: 850-3900 ABSOLUTE MONOCYTES 417 {cells/uL} (Normal) Rang e: 200-950 ABSOLUTE EOSINOPHILS 218 {cells/uL} (Normal) Ra nge: 15-500 ABSOLUTE BASOPHILS 31 {cells/uL} (Normal) Range : 0-200 NEUTROPHILS 53.3 % (Normal) LYMPHOCYTES 29.6 % (Normal) MONOCYTES 10.7 % (Normal) EOSINOPHILS 5.6 % (Normal) BASOPHILS 0.8 % (Normal) 73-Vti-48721:45 [Q] HEPATITIS B SURFACE ANTIGEN W/REFL C [...] suggest ed. For additional information please refer tohttp://education.Bitstamp/faq/YHB33e7(This link is being provided for informational/educational purposes [...] of diabetes in children. Accor ding to [place] Diabetes Association (ADA)guidelines, hemoglobin A1c <7.0% represents optimalcontrol in non- diabetic patients. Differentmetrics may apply to specific patient populations. Standards of Medical Care in Diabetes(ADA). :45 [Q] RPR (MONITOR) W/REFL TITER Comments: REPORT COMMENT:FASTING:YES RPR (MONITOR) W/REFL TITER (REFL) NON-REACTIVE (Normal) Range: NON-REACTIVE Plan of Care Name Dates Details Planned Observations Planned Goals not documented Interventions Provided Medication ChangesvalACYclovir HCl - 500 MG Oral Tablet - Renew Labs/Procedures/ImagingMA Digital Mammo Screening Chang G0202; To Be Done: 05 Dec 2019[Q] CHLAMYDIA/N. GONORRHOEAE RNA, TMA; Done: 05 Dec 2019[Q] HEPATITIS B SURFACE ANTIGEN W/REFL CONFIRM; Done: 05 Dec 2019[Q] HIV-1/2 Antigen and Antibodies, Fourth Generation, with Reflexes; Done: 05 Dec 2019[Q] RPR (MONITOR) W/REFL TITER; Done: 05 Dec 2019[QL] BV/ VAGINITIS PANEL DNA PROBE AFFIRM; Done: 05 Dec 2019[QL] CBC (INCLUDES DIFF/PLT); Done: 05 Dec 2019[QL] CMP W/EGFR; Done: 05 Dec 2019[QL] HEMOGLOBIN A1c; Done: 05 Dec 2019[QL] HEPATITIS C ANTIBODY; Done: 05 Dec 2019[QL] LIPID PANEL; Done: 05 Dec 2019[QL] T4, FREE; Done: 05 Dec 2019[QL] TSH, 3RD GENERATION; Done: 05 Dec 2019Discussion/Summary Normal exam.Fasting labs ordered.STD screen ordered.Valtrex ordered.Mammogram ordered.RTC in 1 year or PRN> Scar tissue from implant removal. Instructions Name Dates Details Instructions not documented [...]
--- OUTSIDE RECORDS SUMMARY | 2019-12-18 14:14 | XMS REPORT | Continuity of Care Document ---
:1980 Author Organization [facility] t Address [address] [place] [address] Care Team Providers Name Role Phone Asked, Pcp Primary Care Physician Unavailable DR DANUTA Attending Clinician Unavailable Zack Khanna Attending Clinician Kaushik Gutierrez MD Attending Clinician CLEMENCIA Attending Clinician Unavailable Rafi Hobson MD Attending Clinician LINDA Attending Clinician Unavailable Charles Segura MD Attending Clinician BROWN Attending Clinician Unavailable DANUTA Attending Clinician Unavailable JONATHAN Attending Clinician Unavailable ANURADHA Attending Clinician Unavailable DANITZA Attending Clinician Unavailable UROGYN1 Attending Clinician Unavailable Paul Ling Attending Clinician Unavailable Basil Attending Clinician BASIL Attending Clinician Unavailable DR DANUTA Admitting Clinician Unavailable Zack Khanna Admitting Clinician Payers Payer Name Policy Type Policy Effective Date Expiration Date Sour Number AETNAAETNA PPO [id number] 2018 [place] OPEN 00:00:00 Judaism [id number] 2018-Presen tPPO Problems Condition Condition Condition Status Onset Resolution Last Treating Co mments Source Name Details Category Date Date Treatment Clinician Date - Diagnosis Active 2019-12-10 M emoria ENCNTR 12-08 11:36:00 l SCREEN Z03.12 - 00:01: Brent moore MAMMOGRAM ENCNTR 00 FOR MA SCREEN MAMMOGRAM FOR MA Active 12/09/2019 DAVID Scanlon N63 - Diagnosis Active 2016-2016-05-09 Mem oria UNSPECIFIE 2-15 08:11:00 l D LUMP IN N63 - 00:01: Brent moore BREAST UNSPECIFIE 00 D LUMP IN BREAST Active 04/27/2016 [place] History of History of Problem Resolve Univers [...] ity of pain pain [place] Physici ans History of History of Problem Resolve Univers Neck Neck d ity of sprain sprain [place] [facility] ans History of History of Problem Resolve Univers Pain, Pain, d it[place] of lower leg [place] leg [place] History of History of Problem Resolve Univers Pap smear Pap smear d ity of for for [place] cervical cervical Physic i cancer cancer ans screening screening History of History of Problem Active U nivers kidney kidney ity of stones stones [place] Physici ans Paroxysmal Paroxysmal Problem Active U nivers supraventr supraventr it y of icular icular [place] tachycardi tachycardi Ph ysici a a ans Vitamin D Vitamin D Problem Active Uni vers deficiency deficiency it y of [place] Physici ans Vaginal Vaginal Problem Active Univers bleeding, bleeding, ity of abnormal abnormal [place] Physici ans Metrorrhag Metrorrhag Problem Active U nivers ia ia ity of [place] Physici ans Bacterial Bacterial Problem Active Uni vers vaginosis vaginosis ity of [place] Physici ans Well woman Well woman Problem Active U nivers exam with exam with ity of routine routine [place] gynecologi gynecologi Ph ysici kay exam kay exam ans Vaginal Vaginal Problem Active Univers discharge [...] ial [place] cystitis) cystitis) Phys ici ans Screening Screening Problem Active Uni vers for STD for STD ity of (sexually (sexually [place] transmitte transmitte Ph ysici d disease) d disease) an s Vaginal Vaginal Problem Active Univers ulcer ulcer ity of [place] Physici ans Herpes Herpes Problem Active Univers ity of [place] [facility] ans Dizziness Dizziness Problem Active Uni vers ity of [place] Physici ans Nausea Nausea Problem Active Univers ity of [place] [facility] ans Nasal Nasal Problem Active Univers deformity deformity ity of [place] [facility] ans Nasal Nasal Problem Active Univers obstructio obstructio it y of n n [place] Physici ans Nasal Nasal Problem Active Univers septal septal ity of deviation deviation [place] Closed Closed Problem Active Univers fracture fracture ity of of nasal of nasal [place] bone, bone, Physici initial initial ans encounter encounter Right Right Problem Active Univers shoulder shoulder ity of pain pain [place] Physici ans Breast Breast Problem Active Univers lump on lump on ity of left side left side [place] at 6 at 6 Physici o'clock o'clock ans position position Visit for Visit for Problem Active Uni vers screening screening it[place] of mammogram mammogram [place] Acute Acute Problem Active Univers intractabl intractabl it y of e e [place] headache, headache, Phys ici unspecifie unspecifie an s d headache d headache type type Dense Dense Problem Active Univers breast breast ity of tissue tissue [place] [facility] ans Asthma Problem Resolve 2019-12-12 Josh sylvia (disorder) d 23:31:23 l Asthma Geff (disorder) Resolved Problem 12/12/2019 no inhalers , no treatments OPID [place] Allergies, Adverse Reactions, Alerts Allergy Allergy Status Severity Reaction(s) Onset Inactive Treating Comm ents Source Name Type Date Date Clinician codeine codeine Active Memwale Scanlon No Known No Known Active Memori a Medicati Medicati l on on [place] Allergsallie s s Family History Family Member Diagnosis Comments Start Date Stop Date Source Unknown Family Family history of Family History University of Member Mitochondrial [place] disease Physicians natural daughter Family history of U niversity of Mitochondrial [place] disease Physicians Grandmother Family history of Univer sity of diabetes mellitus [place] [facility] Grandmother Family history of Univer sity of thyroid disease [place] [facility] Grandmother Family history of Univer sity of Urinary [place] incontinence Physicians Grandmother Family history of Univer sity of Fecal incontinence [place] [facility] Father Family history of Univers ity of Asthma [place] [facility] Father Family history of Univers ity of asthma [place] [facility] Father Family history of Univers ity of Allergy [place] [facility] natural son Family history of Univer sity of asthma [place] [facility] natural son Family history of Univer sity of Allergy [place] [facility] Social History Social Habit Start Date Stop Date Quantity Comments Source Sex Assigned At [facility] M ethodist Exposure to Not sure [place] dist SARS-CoV-2 (event) Social History 2016-05-10 2016-05-10 [facility] 05:59:00 05:59:00 Smoking Status Start Date Stop Date Source Never smoked tobacco (finding) [facility] Medications Ordered Filled Start Stop Current Ordering Indication Dosage Frequency Signature Comments Components Source Medication Medication Date Date Medication? Clinician (SIG) Name Name valACYclovi valACYclovi Yes SUMANTH 1 QD Take one Univers r HCl - 500 r HCl - 500 4-30 HEAPS M.D. (1) ity of MG Oral MG Oral 00:00[place] Table[place] Tablet 00 by mouth Physici daily. ans ketOROLAC No IV, ONCE Josh sylvia (ANES) 11-02 l 14:04: 00 propofol No Route: IV, Mem oria (ANES) 11-02 Drug form: l 14:04: INJ, ONCE, Stop date: 11/02/16 9:04:00 CDT dexamethaso No Route: IV, Memoria ne (ANES) 11-02 Drug form: l 14:01: INJ, ONCE, Stop date: 11/02/16 9:01:00 CDT ondansetron No Route: IV, Memoria (ANES) 11-02 Drug form: l 14:01: INJ, ONCE, Stop date: 11/02/16 9:01:00 CDT Docusate No Notes: Memoria 11-02 (Same as: l 14:00: Colace) Geff (Do Not Crush) Ketorolac No 4 days Memor ia 11-02 l 14:00: MEDICATION Geff 00 WASTE Product Size: 30 mg Product Wasted: ___ mg Tramadol No Notes: Not Mem oria 11-02 to exceed l 14:00: 400mg/day. [place] (Same As: Ultram) ceFAZolin No Route: IV, Me moria (ANES) 11-02 Drug form: l 13:56: INJ, ONCE, Stop date: 11/02/16 8:56:00 CDT fentaNYL No Route: IV, Mem oria (ANES) 11-02 Drug form: l 13:56: INJ, ONCE, Stop date: 11/02/16 8:56:00 CDT lidocaine No Route: IV, Me moria (ANES) 11-02 Drug form: l 13:56: INJ, ONCE, Stop date: 11/02/16 8:56:00 CDT Acetaminoph Yes 1 - 2 tab, Memoria en 300 MG / 11-02 PO, Q4H, l Codeine 13:55: PRN Pain, Ca nn Phosphate 00 # 30 tab, 30 MG Oral 0 Tablet Refill(s) [Tylenol with Codeine #3] Motrin 800 Yes 800 mg = 1 M emoria mg oral 11-02 tab, PO, l tablet 13:55: Q8H, PRN [place] 00 Pain, Take with food, X 30 day, # 90 tab, 0 Refill(s) Oxycodone No Notes: Memori a Hydrochlori 11-02 (Same as: l de 5 MG 13:52: Roxicodone Herm reynaldo Oral Tablet 00 ) Morphine No Notes: Memoria 11-02 (Same l 13:52: as:MORPhin [place] 00 e Sulfate) Ondansetron No Notes: Josh sylvia 11-02 (Same as: l 13:52: Zofran) Geff MEDICATION WASTE Product Size: 4 mg Product Wasted: ___ mg Promethazin No Notes: Josh sylvia e - (Same as: l 13:52: Phenergan) [place] 00 Hydroxyzine No Notes: Josh sylvia 8-23 (Same as: l 13:52: Atarax) Avoid alcohol. Al No Notes: Memoria hydroxide/M 8-23 (aluminum l g 13:52: hydroxide- Geff hydroxide/s 00 magnesium imethicone hyd-simeth 200 mg-200 icone mg-20 mg/5 200-200-20 mL oral mg/5ml 30 suspension ml ud AMAURI) Oxycodone No Notes: Memori a Hydrochlori 11-02 (Same as: l de 1 MG/ML 13:52: Roxicodone H erm Oral 00 ) Solution midazolam No Route: IV, Me moria (ANES) 11-02 Drug form: l 13:51: SOLN, 00 ONCE, Stop date: 11/02/16 8:51:00 CDT LR 1000 mL No Route: IV, M emoria INJ (ANES) 11-02 Total l 13:16: Volume: Geff 00 1,000, Start date: 11/02/16 8:16:00 CDT, Stop date: 11/02/16 9:16:00 CDT Calcium No 1,000 mL, Memor ia Chloride 11-02 Rate: 25 l 0.0014 11:03: ml/hr, Geff MEQ/ML / 00 Infuse Potassium over: 40 Chloride hr, Route: 0.004 IV, Dosing MEQ/ML / Weight Sodium 58.636 kg, Chloride Total 0.103 Volume: MEQ/ML / 1,000, Sodium Start Lactate date: 0.028 11/02/16 MEQ/ML 6:03:00 Injectable CDT, Solution Duration: 30 day, Stop date: 12/02/16 6:02:00 CDT Uribel oral Yes See Memori a capsule 8-15 Instructio l 20:04: ns, 1 cap Geff 00 po q 6 hrs, 0 Refill(s) cranberry Yes 0 Memoria oral 8-15 Refill(s) l capsule 20:04: [place] 00 Vitamin D3 Yes 2,000 Memori a 2000 intl 8-15 IntlUnit = l units oral 20:04: 1 cap, PO, H ermann capsule 00 Daily, # 100 cap, 3 Refill(s) Uribel 118 Uribel 118 2017- Yes SAMANTHA Take one Univers MG Oral MG Oral 7-31 DERESKA tablet ity of Capsule Capsule 00:00: M.D. every 6 [place] 00 hours as Physici needed ans Immunizations Ordered Immunization Filled Immunization Date Status Commen ts Source Name Name Fluzone Quadrivalent Unknown Completed Univ ersity of 0.5 ML Intramuscular [place] Physicians Suspension Prefilled Syringe Vital Signs Vital Name Observation Time Observation Value Comments Source Systolic blood 2019-12-05 127 mm[Hg] Location: [facility] 09:07:00 Position: [place] Physician s Sitting Diastolic blood 2019-12-05 81 mm[Hg] Location: [facility] 09:07:00 Position: [place] Physician s Sitting Body height 2019-12-05 63 [in_us] [facility] 09:07:00 [place] Physician s Weight 2019-12-05 148.375 [lb_av] University o f 09:07:00 [place] Physician s Body mass index 2019-12-05 26.28 kg/m2 [place] o f (BMI) [Ratio] 09:07:00 [place] [facility] Body temperature 2019-12-05 97 [degF] Method: [facility] 09:07:00 Temporal [place] Physician s BP Systolic 2018-08-13 124 mm[Hg] Location: [facility] 16:02:00 Position: [place] Physician s Sitting BP Diastolic 2018-08-13 75 mm[Hg] [facility] 16:02:00 Position: [place] Physician s Sitting Height 2018-08-13 63 [in_us] [facility] 16:02:00 [place] Physician s Weight 2018-08-13 146.5 [lb_av] [facility] 16:02:00 [place] Physician s Body Mass Index 2018-08-13 25.95 kg/m2 University o f Calculated 16:02:00 [place] Physician s BP Systolic 2017-12-21 114 mm[Hg] [facility] 15:37:00 Position: [place] Physician s Sitting BP Diastolic 2017-12-21 64 mm[Hg] Location: [facility] 15:37:00 Position: [place] Physician s Sitting Height 2017-12-21 63 [in_us] University 15:37:00 [place] Physician s Weight 2017-12-21 144.5 [lb_av] University 15:37:00 [place] Physician s Body Mass Index 2017-12-21 25.6 kg/m2 University o f Calculated 15:37:00 [place] Physician s Temperature 2017-12-21 97.3 [degF] Method: Oral University 15:37:00 [place] Phys[place] s Heart Rate 2017-12-21 79 /min Quality: University 15:37:00 Regular [place] Physician s BP Systolic 2017-09-14 114 mm[Hg] University of 13:16:00 [place] Physician s BP Diastolic 2017-09-14 75 mm[Hg] University 13:16:00 [place] Physician s Height 2017-09-14 63 [in_us] University of 13:16:00 [place] Physician s Weight 2017-09-14 140.375 [lb_av] University o f 13:16:00 [place] Physician s Body Mass Index 2017-09-14 24.87 kg/m2 University o f Calculated 13:16:00 [place] Physician s Temperature 2017-09-14 98 [degF] Method: Oral University 13:16:00 [place] Physician s Heart Rate 2017-09-14 88 /min University of 13:16:00 [place] Physician s BP Systolic 2017-02-08 124 mm[Hg] Location: [facility] 14:44:00 Position: [place] Physician s Sitting BP Diastolic 2017-02-08 77 mm[Hg] Location: [facility] 14:44:00 Position: [place] Physician s Sitting Height 2017-02-08 63 [in_us] University of 14:44:00 [place] Physician s Weight 2017-02-08 137 [lb_av] University of 14:44:00 [place] Physician s Body Mass Index 2017-02-08 24.27 kg/m2 University o f Calculated 14:44:00 [place] Physician s Systolic (mm Hg) 2016-11-02 [facility] He rmann 15:50:00 Diastolic (mm Hg) 2016-11-02 [facility] ermann 15:50:00 Respitory Rate 2016-11-02 [facility] Herm reynaldo 15:50:00 Systolic (mm Hg) 2016-11-02 [facility] rmann 14:45:00 Diastolic (mm Hg) 2016-11-02 [facility] 14:45:00 Respitory Rate 2016-11-02 [facility] reynaldo 14:45:00 Systolic (mm Hg) 2016-11-02 [facility] rmann 14:30:00 Diastolic (mm Hg) 2016-11-02 [facility] ermann 14:30:00 Respitory Rate 2016-11-02 [facility] reynaldo 14:30:00 BMI Calculated 2016-11-02 [facility] reynaldo 11:03:00 Height 2016-11-02 160.02 cm [facility] Brent n 11:03:00 Weight 2016-11-02 [facility] Brent n 11:03:00 Height 2016-10-25 160.02 cm [facility] Brent n 20:07:00 BMI Calculated 2016-10-25 [facility] reynaldo 20:07:00 Weight 2016-10-25 [facility] Brent n 20:07:00 BMI Calculated 2016-10-25 [facility] reynaldo 20:05:00 Weight 2016-10-25 [facility] Brent n 20:05:00 Height 2016-10-25 160.02 cm [facility] Brent n 20:05:00 Procedures Procedure Date / Time Performing Clinician Source Performed [place] Digital Mammo DX Uni 2019-12-12 00:00:00 [facility] [id number] [place] [id number] 2019-12-12 [facility] COVID-19 QUALITATIVE 2019-12-10 14:17:00 Carlos Gutierrez PCR Kaushik [QL] CBC (INCLUDES 2019-12-05 00:00:00 [facility] DIFF/PLT) Physicians [QL] CMP W/EGFR 2019-12-05 00:00:00 [place] [facility] [place] [facility] [QL] HEMOGLOBIN A1c 2019-12-05 00:00:00 [facility] Physicians [QL] LIPID PANEL 2019-12-05 00:00:00 [facility] Physicians [QL] T4, FREE 2019-12-05 00:00:00 [place] [facility] Physicians [QL] TSH, 3RD 2019-12-05 00:00:00 [place] [facility] GENERATION Physicians [Q] HEPATITIS B SURFACE 2019-12-05 00:00:00 Univ [facility] ANTIGEN W/REFL CONFIRM Physician s [Q] HIV-1/2 Antigen and 2019-12-05 00:00:00 [facility] Antibodies, Fourth Physicians Generation, with Reflexes [Q] RPR (MONITOR) 2019-12-05 00:00:00 [facility] W/REFL TITER Physicians [QL] HEPATITIS C 2019-12-05 00:00:00 [facility] ANTIBODY Physicians [Q] CHLAMYDIA/N. 2019-12-05 00:00:00 [facility] GONORRHOEAE RNA, TMA Physicians [QL] BV/ VAGINITIS 2019-12-05 00:00:00 [facility] PANEL DNA PROBE AFFIRM Physician s MA Digital Mammo 2019-12-05 00:00:00 [facility] Screening Chang [id number] Physicians COVID-19 QUALITATIVE 2019-10-07 11:03:00 Lion Hobson [facility] PCR COVID-19 QUALITATIVE 2019-09-10 17:12:00 Santos Segura [facility] PCR [U] XRAY SHOULDER MIN 2 2018-12-19 00:00:00 [facility] VWS RIGHT [id number] Physicians . [facility] - PAP 2018-08-13 00:00:00 [place] [facility] [place] [facility] . [facility] - Affirm VPIII 2017-02-09 00:00:00 [facility] (BV Panel) Physicians . [facility] - GC/Chlamydia 2017-02-09 00:00:00 [facility] Physicians [Q] HIV AB, HIV 1/2, 2017-01-06 00:00:00 [facility] EIA, WITH REFLEXES Physicians [LH] Herpes Simplex 2017-01-06 00:00:00 [facility] Virus 1 and 2 Antibody Physician s IgM [QL] CULTURE, HERPES 2017-01-06 00:00:00 [facility] SIMPLEX VIRUS WITH Physicians TYPING Hysteroscopy<sup>1</sup 2016-11-02 05:00:00 Josh rial [place] > section 2007-03-13 00:00:00 Jaymie larson Breast augmentation 2001-03-13 00:00:00 Jaymie Scanlon History of [facility] [place] Section Physicians History of Breast [facility] Surgery Enlargement Physicians Procedure History of Endometrial [facility] ablation Physicians Plan of Care Planned Activity Planned Date Details Comments Source Future Scheduled 2019-10-12 INFLUENZA VACCINE [place] [facility] Test 00:00:00 [code = INFLUENZA VACCINE] Future Scheduled 1999-10-07 Screening for [place] [facility] Test 00:00:00 malignant neoplasm of cervix (procedure) [code = 252114369] Encounters Start End Encounter Admission Attending Care Care Encounter Source Date/Time Date/Time Type Type Clinicians Facility Department ID 2018-02-21 Inpatient C DANUTAMERARI [facility] ALL [id number] 07:30:[address] [facility] 2019-12-10 2019-12-10 Outpatient Clemencia [facility] [id number] 11:23:00 23:59:00 Sumanth Nichols 2019-12-10 2019-12-10 Outpatient KENNY, [facility] [id number] [place] 00:00:00 00:00:00 CARLOS 309 Method i 2019-12-05 2019-12-05 AppointVICENTA [facility] [id number] Univers 09:00:00 09:00:00 t; SUMANTH KHANNA M.D. [facility] ity Jyothi HERNANDEZ M.D. Physici ans 2019-10-07 2019-10-07 Outpatient RUBEN, [facility] [id number] [place] 00:00:00 00:00:00 LION 538 Method i 2019-09-10 2019-09-10 Outpatient LINDA, [facility] [id number] [place] 00:00:00 00:00:00 TESSA 318 Method i 2018-12-19 2018-12-19 AppointVICENTA [facility] [id number] [facility] 14:00:00 14:00:00 t; guero ROTHMAN [facility] Ji M.D. [facility] Magalys ROTHMAN M.D. [facility] 2018-08-13 2018-08-13 VICENTA Mccollum [facility] [id number] Univers 15:30:00 15:30:00 t; SUMANTH KHANNA M.D. [facility] enio Jyothi HERNANDEZ M.D. Physici ans 2017-12-21 2017-12-21 AppointMERARI [place] UTP Otorhinolar 4 [id number] [facility] 15:30:00 15:30:00 t; Amaris TIPTON yngology - itLashae M.D. [place] [facility] ans 2017-09-14 2017-09-14 Appointmen CASTILLO, [facility] [place] [id number] Univers 13:00:00 13:00:00 t; KERLINE CHINCHILLA [facility] ity [place], [place] KERLINE CHINCHILLA Physi ci ans 2017-02-08 2017-02-08 Appointmen CLEMENCIA, VICENTA [facility] [id number] Univers 14:30:00 14:30:00 t; SUMANTH KHANNA M.D. [place] [facility] Amaris Physici ans 2017-01-06 2017-01-06 Appointmen SHAYYCIERRA, UTP UTP [id number] Univers 15:20:00 15:20:00 t; KERLINE TAYLOR ity [place], [place] KERLINE TAYLOR Physic i ans 2016-11-28 2016-11-28 Appointmen DANITZA, UTP UTP [id number] Univers 14:10:00 14:10:00 t; Amaris SINGH [place], [place] Amaris SINGH Physi ci ans 2016-11-28 2016-11-28 Appointmen DANITZA, VICENTA UTP [id number] Univers 13:20:00 13:20:00 t; Amaris SINGH [place], [place] Amaris SINGH Physi ci ans 2016-11-16 2016-11-16 Appointmen CLEMENCIA, VICENTA UTP [id number] Univers 13:30:00 13:30:00 t; SUMANTH KHANNA M.D. [facility] [place] [facility] [place] [facility] ans 2016-11-07 2016-11-07 Appointmen DANITZA, VICENTA UTP [id number] Univers 16:30:00 16:30:00 t; Amaris SINGH [place], [place] Amaris SINGH Physi ci ans 2016-11-07 2016-11-07 Appointmen DANITZA, VICENTA UTP [id number] Univers 16:10:00 16:10:00 t; Amaris SINGH [place], [place] Amaris SINGH Physi ci ans 2016-11-02 2016-11-02 Outpatient MARY Khanna [facility] [id number] [facility] 06:03:21 10:50:00 Sumanth R 00 2016-11-02 2016-11-02 Appointmen RAPHAELGLORY, UTP UTP [id number] Univers 08:00:00 08:00:00 t; SUMANTH KHANNA M.D. ity [facility] Physici ans 2016-10-26 2016-10-26 Appointmen RAPHAELGLORY, UTP UTP [id number] Univers 13:45:00 13:45:00 t; SUMANTH KHANNA M.D. ity [facility] Physici ans 2016-10-17 2016-10-17 Appointmen UROGYGladis, UTP UTP [id number] Univers 14:20:00 14:20:00 t; DANITZA [address] Physici ans 2016-10-05 2016-10-05 Outpatient Anuradha, [id number] 14:54:00 23:59:00 Mallory Miller [id number] 2016-09-27 2016-09-27 Appointmen SHAYYCASHMEGHA, UTP UTP [id number] Univers 15:40:00 15:40:00 t; KERLINE TAYLOR ity [place], [place] KERLINE TAYLOR Physic i ans 2016-09-16 2016-09-16 Appointmen CLEMENCIA, UTP UTP [id number] Univers 09:15:00 09:15:00 t; SUMANTH KHANNA M.D. ity [facility] Physici ans 2016-09-05 2016-09-05 Appointmen RAPHAELGLORY, UTP UTP [id number] Univers 09:00:00 09:00:00 t; SUMANTH KHANNA M.D. itbrown [facility] Physici ans 2016-06-15 2016-06-15 Outpatient Imani [id number]. [id number] 09:14:00 23:59:00 Sumanth Dixon [id number] 2016-06-07 2016-06-07 Appointmen CLEMENCIA [facility] UTP [id number] Univers 14:00:00 14:00:00 t; SUMANTH KHANNA M.D. ity of [place], [place] M.D. Physici ans 2016-05-09 2016-05-09 Outpatient Basil, [id number] 08:03:00 23:59:00 Kristinjuliane [id number] 2016-04-19 2016-04-19 Appointmen BASIL [facility] UTP [id number] Univers 14:30:00 14:30:00 t; Elver EASLEY M.D. [place] POURAN, Physici M.D. ans 2015-07-01 2015-07-01 Appointmen BASIL [facility] UTP [id number] Univers 08:15:00 08:15:00 t; Elver EASLEY M.D. [place] POURAN, Physici M.D. ans Results Test Description Test Time Test Comments Results Result Comments Source COVID-19 qualitative PCR 2019-12-10 20:23:15 Test Item Value Reference Range Interpretation Comme nts Interpretation (test code = Negative results do not 4585980) preclude 2019-nCoV infection and should not be used as the sole basis for treatment or other patient management decisions. Negative results must be combined with clinical observations, patient history, and epidemiological information. COVID-19 qualitative PCR Not-Detected Not-Detected result (test code = 24709-7) COVID-19 qualitative PCR See link below for PDF Lab Case Number: (test code = 7070) Report [id number] [facility] Digital Mammo Screen Chang w noemi [id number] 12:28:00 BILATERAL DIGITAL SCREENING MAMMOGRAM 3D/2D WITH CAD: 12/10/2019CLINICAL: /Z12.31 Encounter For Screening Mammogram For Malignant Neoplasm OfBreast. Current study was evaluated with a Computer Aided Detection (CAD) system. COMPARISON:Comparison is made to exams dated: 05/09/2016 mammogram and 10/13/2011mammogram - [facility]. TECHNIQUE: Digital Breast Tomosynthesis was performed and utilized forInterpretation. Current study was also evaluated with a Computer AidedDetection (CAD) system.FINDINGS:There are scattered fibroglandular densities in both breasts. There arediffuse heterogeneous calcifications in the left breast. There also are multiple lymph nodes in the left axillary tail. No other significant masses, calcifications, or other findings are seen ineither breast. IMPRESSION: INCOMPLETE: NEEDS ADDITIONAL IMAGING EVALUATIONRECOMMENDATION:The diffuse heterogeneous calcifications in the left breast areindeterminate. Spot magnification and lateral views as well as a possibleultrasound are recommended. The multiple lymph nodes in the left axillary tail are indeterminate. Anultrasound is recommended. This exam was interpreted at [id number] for [facility]. Danni Haddad M.D. /sudeep:12/11/2019 11:20:15 Comprehensive Advisor(s): Laura Martin [facility] OutpatientImaging Departmentletter sent: BI-RADS 0 Mammogram BI-RADS: 0 Indeterminate--Read by: Danni Haddad MD PHDDictated Date/time: 12/11/19 11:20Electronically Signed by: Danni Haddad MD PHD 12/10/2010:20FINAL REPORTUn[facility][] LIPID [id number] 08:45:00 Test Item Value Reference Range Interpretation Comments CHOLESTEROL, TOTAL; 139 mg/dl <200 N Normal (test code = 2093-3) HDL CHOLESTEROL; 52 mg/dl > OR = 50 N Normal (test code = 2085-9) TRIGLYCERIDES; 45 mg/dl <150 N Normal (test code = 2571-8) LDL-CHOLESTEROL; 74 {MG/DL N Reference r miguelito: Normal (test code = KAY} <100 Toni irable range 27241-1) <100 mg/dL for primary prevent ion; <70 mg/dL for patients with C HD or diabetic patien ts with > or = 2 C HD risk factors. L DL-C is now calculat ed using the Reilly-Micheal calculation, wh ich is a validated novel method providin g better accuracy than the Friedewald equation in the estimation of L DL-C. Reilly SS et al . JLUIS. 2013;310( 19): 0911-7347 (http://educati on.Nomorerack.com estDiagnostics. com/f aq/NEE449) CHOL/HDLC RATIO 2.7 {CALC} <5.0 N (test code = CHOL/HDLC RATIO) NON HDL CHOLESTEROL 87 {MG/DL <130 N For evelny ents with (test code = NON HDL KAY} diabete s plus 1 CHOLESTEROL) major ASCVD ris k factor, treatin g to a non-HDL-C goa l of <100 mg/dL (LDL -C of <70 mg/dL) is considered a therapeutic opt ion. [facility][Q] HIV-1/2 Antigen and Antibodies, Fourth Generation, with [id number] 08:45:00 Test Item Value Reference Range Interpretation Comments HIV AG/AB, 4TH NON-REACTIVE NON-REACTIVE N HIV-1 antigen and GEN; Normal HIV-1/HIV-2 ant ibodies were (test code = [place] [address]-9) laboratory evid ence of HIVinfection. P LEAARON NOTE: This informatio n has been disclosed toyou from records whose confidentiality may beprotected by state law. If your state r equires suchprotection, then the state law prohi bits you frommaking any further disclosure of t he informationwith out the specific writte n consent of the personto om it pertains, or as otherwise permitted by orly salgado.A general authorization f or the release of medi kay orother information is NOT sufficient for this purpose. For a dditional information ple ase refer tohttp://educat ion.Whimseybox.nexTune/fa q/PUU221(Thi s link is being provided for informational/e ducational purposes only.) The performance of this assay has not been clinicallyvalid ated in patients less t domingo 2 years old. [facility][QL] CMP [id number] 08:45:00 Test Item Value Reference Range Interpretation Comments GLUCOSE; Normal 84 mg/dl 65-99 N Fasting refe rence (test code = 1547-9) interva l UREA NITROGEN (BUN) 12 mg/dl 7-25 N (test code = UREA NITROGEN (BUN)) CREATININE (test 0.80 mg/dl 0.50-1.10 N code = CREATININE) eGFR NON-AFR. 92 {ML/MIN/1.7} > OR = 60 N [place] (test code = eGFR NON-AFR. [place]) eGFR 106 {ML/MIN/1.7} > OR = 60 N [place] (test code = eGFR ) BUN/CREATININE RATIO NOT APPLICABLE - (test code = BUN/CREATININE RATIO) SODIUM (test code = 139 mmol/L 135-146 N SODIUM) POTASSIUM (test code 4.6 mmol/L 3.5-5.3 N = POTASSIUM) CHLORIDE (test code 104 mmol/L 98-110 N = CHLORIDE) CARBON DIOXIDE (test 27 mmol/L 20-32 N code = CARBON DIOXIDE) CALCIUM (test code = 9.3 mg/dl 8.6-10.2 N CALCIUM) PROTEIN, TOTAL (test 6.9 g/dl 6.1-8.1 N code = PROTEIN, TOTAL) ALBUMIN (test code = 4.3 g/dl 3.6-5.1 N ALBUMIN) GLOBULIN (test code 2.6 {G/DL CALC} 1.9-3.7 N = GLOBULIN) ALBUMIN/GLOBULIN 1.7 {CALC} 1.0-2.5 N RATIO (test code = ALBUMIN/GLOBULIN RATIO) BILIRUBIN, TOTAL; 0.5 mg/dl 0.2-1.2 N Normal (test code = 94106-2) ALKALINE PHOSPHATASE 52 u/l 31-125 N (test code = ALKALINE PHOSPHATASE) AST; Normal (test 19 u/l 10-30 N code = 1916-6) ALT; Normal (test 13 u/l 6-29 N code = 1742-6) [facility][QL] CBC (INCLUDES DIFF/PLT)2019-12-06 08:45:00 Test Item Value Reference Range Interpretation Comments WHITE BLOOD CELL COUNT 3.9 {Thousand/u} 3.8-10.8 N (test code = WHITE BLOOD CELL COUNT) RED BLOOD CELL COUNT (test 4.84 {Million/uL} 3.80-5.10 N code = RED BLOOD CELL COUNT) HEMOGLOBIN; Normal (test 13.6 g/dl 11.7-15.5 N code = 25522-8) HEMATOCRIT; Normal (test 42.0 % 35.0-45.0 N code = 4544-3) MCV; Normal (test code = 86.8 fL 80.0-100.0 N 787-2) MCHC; Normal (test code = 32.4 g/dl 32.0-36.0 N 41209-8) RDW; Normal (test code = 13.1 % 11.0-15.0 N 788-0) PLATELET COUNT; Normal 241 {Thousand/u} 140-400 N (test code = 777-3) MPV; Normal (test code = 10.6 fL 7.5-12.5 N 59897-3) ABSOLUTE NEUTROPHILS (test 2079 {cells/uL} 9812-3102 N code = ABSOLUTE NEUTROPHILS) ABSOLUTE LYMPHOCYTES (test 1154 {cells/uL} 850-3900 N code = ABSOLUTE LYMPHOCYTES) ABSOLUTE MONOCYTES (test 417 {cells/uL} 200-950 N code = ABSOLUTE MONOCYTES) ABSOLUTE EOSINOPHILS (test 218 {cells/uL} 15-500 N code = ABSOLUTE EOSINOPHILS) ABSOLUTE BASOPHILS (test 31 {cells/uL} 0-200 N code = ABSOLUTE BASOPHILS) NEUTROPHILS (test code = 53.3 % N NEUTROPHILS) LYMPHOCYTES (test code = 29.6 % N LYMPHOCYTES) MONOCYTES; Normal (test 10.7 % N code = 99245-2) EOSINOPHILS; Normal (test 5.6 % N code = 09488-9) BASOPHILS; Normal (test 0.8 % N code = 28747-5) [facility][Q] HEPATITIS B SURFACE ANTIGEN W/REFL CONFIRM 2019-12-06 08:45:00 Test Item Value Reference Range Interpretation Comments HEPATITIS B SURFACE ANTIGEN; NON-REACTIVE NON-REACTIVE N Normal (test code = 5195-3) [facility][QL] HEPATITIS C [id number] 08:45:00 Test Item Value Reference Range Interpretation Comments HEPATITIS C NON-REACTIVE NON-REACTIVE N ANTIBODY; Normal (test code = 21002-1) SIGNAL TO CUT-OFF 0.04 <1.00 N HCV antibo dy was (test code = SIGNAL non-reac tive. There TO CUT-OFF) is no laborator y evidence of HCV infection. In m ost cases, no furth er action is requi red. However,if rece nt HCV exposure is suspected, a te st for HCV RNA([place] [address]) is sugge sted. For additional information ple ase refer tohttp://educat ion.Makeblock. nexTune/fa q/PDH47l0(This link is being provid ed for informational/e ducati onal purposes o nly.) [facility][QL] T4, [id number] 08:45:00 Test Item Value Reference Range Interpretation Comments T4, FREE (test code = T4, FREE) 1.0 ng/dl 0.8-1.8 N [facility][QL] TSH, 3RD [id number] 08:45:00 Test Item Value Reference Range Interpretation Comments TSH; Normal (test 1.53 {MIU/L} N Reference Range code = 62495-0) > or = 20 Years 0.40-4.5 0 Range s First trimes ter 0.26-2.66 Second trimeste r 0.55-2.73 Third trimester 0.43-2.91 [facility][QL] HEMOGLOBIN [id number] 08:45:00 Test Item Value Reference Range Interpretation Comments HEMOGLOBIN A1c; 5.3 {% of <5.7 N For the purp ose of Normal (test code total} screening for the = 4548-4) presence ofdiab etes: <5.7% Con sistent with the absenc e of diabetes5.7-6.4 % Consistent with increased risk for diabetes (prediabetes)> or =6.5% Consistent wit h diabetes This a ssay result is consi stent with a decrease d riskof diabetes. Curre ntly, no consensus exist s regarding use ofhemoglobin A1 c for diagnosis of di abetes in children. Ac cording to [place] [employer] Association (ADA)guidelines , hemoglobin A1c <7.0% represents optimalcontrol in non- di abetic patients. Differentmetric s may apply to specif ic patient populat ions. Standards of Me dical Care in Diabete s(ADA). [facility][Q] RPR (MONITOR) W/REFL [id number] 08:45:00 Test Item Value Reference Range Interpretation Comments RPR (MONITOR) W/REFL TITER NON-REACTIVE NON-REACTIVE N (REFL) (test code = RPR (MONITOR) W/REFL TITER (REFL)) [facility][QL] LIPID [id number] 00:00:00 Test Item Value Reference Range Interpretation Comments CHOLESTEROL, TOTAL (test TNP PEDRO T NOT PERFORMED No code = 2093-3) suitable spec imen received. HDL CHOLESTEROL (test code TNP T EST NOT PERFORMED No = 2085-9) suitable specim en received. TRIGLYCERIDES (test code = TNP T EST NOT PERFORMED No 2571-8) suitable specim en received. LDL-CHOLESTEROL (test code TNP T EST NOT PERFORMED No = 65357-0) suitable specim en received. CHOL/HDLC RATIO (test code TNP T EST NOT PERFORMED No = CHOL/HDLC RATIO) suitable specimen received. NON HDL CHOLESTEROL (test TNP TE ST NOT PERFORMED No code = NON HDL suitable spec imen CHOLESTEROL) received. [facility][Q] HIV-1/2 Antigen and Antibodies, Fourth Generation, with [id number] 00:00:00 Test Item Value Reference Range Interpretation Comments HIV AG/AB, 4TH GEN; TNP N TEST NOT PERFORMED No Normal (test code = suitable specimen 49948-0) received. [facility][QL] CMP [id number] 00:00:00 Test Item Value Reference Range Interpretation Comments GLUCOSE (test code = TNP TEST NO T PERFORMED No 1547-9) suitable specim en received. [facility][QL] CBC (INCLUDES DIFF/PLT)2019-12-05 00:00:00 Test Item Value Reference Range Interpretation Comments WHITE BLOOD CELL COUNT TNP TEST NOT PERFORMED No (test code = WHITE suitable specimen BLOOD CELL COUNT) received. [facility][Q] HEPATITIS B SURFACE ANTIGEN W/REFL CONFIRM 2019-12-05 00:00:00 Test Item Value Reference Range Interpretation Comments HEPATITIS B SURFACE TNP N TEST NOT PERFORMED No ANTIGEN; Normal (test suitab le specimen code = 5195-3) received. [facility][QL] HEPATITIS C [id number] 00:00:00 Test Item Value Reference Range Interpretation Comments HEPATITIS C ANTIBODY; TNP N TEST N OT PERFORMED No Normal (test code = suitable specimen 30644-2) received. [facility][QL] BV/ VAGINITIS PANEL DNA PROBE AFFIRM 2019-12-05 00:00:00 Test Item Value Reference Range Interpretation Comments TRICHOMONAS: (test code = NOT DETECTED NOT DETECTED N TRICHOMONAS:) GARDNERELLA: (test code = NOT DETECTED NOT DETECTED N GARDNERELLA:) JHONY: (test code = JHONY:) NOT DETECTED NOT DETECTED N [facility][QL] T4, [id number] 00:00:00 Test Item Value Reference Range Interpretation Comments T4, FREE (test code = TNP TEST N OT PERFORMED No T4, FREE) suitable specim en received. [facility][QL] TSH, 3RD [id number] 00:00:00 Test Item Value Reference Range Interpretation Comments TSH (test code = [place] [address]-0) suitable specim en received. [facility][QL] HEMOGLOBIN [id number] 00:00:00 Test Item Value Reference Range Interpretation Comments HEMOGLOBIN A1c (test code TNP TE ST NOT PERFORMED No = 4548-4) suitable specim en received. [facility][Q] CHLAMYDIA/N. GONORRHOEAE RNA, [id number] 00:00:00 Test Item Value Reference Range Interpretation Comments CHLAMYDIAN TRACHOMATIS RNA, TMA NOT DETECTED NOT DETECTED N UROGENITAL; Normal (test code = 14598-8) NEISSERIA GONORRHOEAE RNA, TMA NOT DETECTED NOT DETECTED N UROGENITAL; Normal (test code = 15674-2) [facility][Q] RPR (MONITOR) W/REFL [id number] 00:00:00 Test Item Value Reference Range Interpretation Comments RPR (MONITOR) W/REFL TNP N TEST NO T PERFORMED No TITER (REFL) (test suitable specimen code = RPR (MONITOR) receive d. W/REFL TITER (REFL)) [facility]iciansUT Pathology [id number] 00:00:00 Test Item Value Reference Range Interpretation Comments REPORT (test code = REPORT) See Comment [facility]] CBC (INCLUDES DIFF/PLT)2017-09-14 14:58:01 Test Item Value Reference Range Interpretation Comments WBC (test code = 6690-2) 4.8 {K/CMM} 3.7-10.4 RBC (test code = 789-8) 4.34 {M/CMM} 4.20-5.40 Hgb (test code = 718-7) 13.5 g/dl 12.0-16.0 Hct (test code = 04605-6) 38.6 % 36.0-48.0 MCV (test code = 787-2) 89.0 fL 80.0-98.0 MCH; Above High Threshold (test 31.2 pg 27.0-31.0 code = 785-6) MCHC (test code = 786-4) 35.0 g/dl 32.0-36.0 RDW (test code = 788-0) 13.9 % 11.5-14.5 Platelet (test code = 24094-1) 221 {K/CMM} 133-450 Mean Platelet Volume (test code 8.8 fL 7.4-10.4 = 51224-5) [facility]] [id number] 14:58:01 Test Item Value Reference Range Interpretation Comments Segmented Neutrophils (test code 65.1 % 45.0-75.0 = 61500-8) Monocytes (test code = 18136-0) 8.8 % 2.0-12.0 Lymphocytes (test code = 98220-6) 23.8 % 20.0-40.0 Eosinophils (test code = 18662-0) 1.6 % 0.0-4.0 Basophils (test code = 706-2) 0.7 % 0.0-1.0 Segs-Bands # (test code = 3.1 {K/CMM} 1.5-8.1 56766-7) Lymphocytes # (test code = 1.1 {K/CMM} 1.0-5.5 95710-8) Monocytes # (test code = 18805-3) 0.4 {K/CMM} 0.0-0.8 Eosinophils # (test code = 0.1 {K/CMM} 0.0-0.5 15779-7) [facility]] URINALYSIS, [id number] 14:58:01 Test Item Value Reference Range Interpretation Comments UA Turbidity (test code = 48135-1) Clear Clear UA Spec Grav (test code = 5810-7) 1.013 <=1.030 UA pH (test code = 5803-2) 6.0 5.0-8.0 UA Protein (test code = 30633-6) Negative Negative UA Glucose (test code = 30581-6) Negative Negative UA Ketones (test code = 95116-8) Negative Negative UA Bili (test code = 5770-3) Negative Negative UA Blood (test code = 5794-3) Negative Negative UA Nitrite (test code = 5802-4) Negative Negative UA Leuk Est (test code = 5799-2) Negative Negative UA WBC (test code = 57785-3) <1 0-5 UA Bacteria (test code = 37771-8) Occasional None Seen UA Mucus (test code = 8247-9) Few None Seen UA Sq Epi (test code = 67938-2) Occasional Few UA Color (test code = 5778-6) BLUE UROBILINOGEN (test code = 16447-3) <=1.0 0.1-1.0 [facility]] CMP [id number] 14:58:01 Test Item Value Reference Range Interpretation Comments Sodium Level 137 {mEq/l} 135-145 (test code = 2951-2) Potassium Level 4.2 {mEq/l} 3.5-5.1 (test code = 2823-3) Chloride Level 103 {mEq/l} 95-109 (test code = 5-0) Carbon Dioxide 27 {mEq/l} 24-32 (test code = 2027-9) AGAP (test code = 11.2 {mEq/l} 10.0-20.0 72684-1) Glucose Lvl (test 79 mg/dl 70-99 Adult refe rence range code = 2345-7) values reflec t the clinical guidel inesof the [place] Diabet es Association. Creatinine Lvl 0.80 mg/dl 0.50-1.40 (test code = 2160-0) Blood Urea 11 mg/dl 7-22 Nitrogen (test code = 3094-0) BUN/Creatinine 14 6-25 Ratio (test code = 3097-3) Total Protein 7.2 g/dl 6.4-8.4 (test code = 2885-2) Albumin Lvl (test 3.8 g/dl 3.5-5.0 code = 1751-7) Globulin (test 3.4 g/dl 2.7-4.2 code = 00518-2) A/G Ratio (test 1.1 0.7-1.6 code = 1759-0) Calcium Level 8.5 mg/dl 8.5-10.5 Total (test code = 02296-3) ALT (test code = 21 u/l 0-65 1743-4) AST (test code = 19 u/l 0-37 96712-8) Bili Total (test 0.4 mg/dl 0.2-1.3 code = 1975-2) Alk Phos (test 61 u/l 39-136 code = 1783-0) eGFR (test code = 94 The eGFR i s calculated 52050-1) {ML/MIN/1.7} using the CKD-E PI formula. In [...] be multiplied by t he estimated BMI. [facility]] [id number] 14:58:01 Test Item Value Reference Range Interpretation Comments Magnesium Level (test code = 2.3 mg/dl 1.8-2.4 66354-1) [facility] TSH, 3RD GENERATION W/REFLEX TO FT4 2017-09-14 14:58:01 Test Item Value Reference Range Interpretation Comments TSH (test code = 50079-6) 1.300 {uIU/ml} 0.360-3.740 [facility]] CULTURE, URINE, [id number] 14:58:01 Test Item Value Reference Range Interpretation Comments FINAL REPORT (test code <10,000 CFU/mL Skin = FINAL REPORT) Deanna [facility]. [facility] - [id number] 00:00:00 Test Item Value Reference Range Interpretation Comments GC/Chlamydia REPORT (test code = See Comment GC/Chlamydia REPORT) [facility] [id number] 11:05:00Negative (11/02/16 6:05 AM)Jaymie Scanlon. [facility] - HPV High [id number] 00:00:00 Test Item Value Reference Range Interpretation Comments HPV High Risk REPORT (test code = Negative HPV High Risk REPORT) [facility]. [facility] - [id number] 00:00:00 Test Item Value Reference Range Interpretation Comments PAP REPORT (test code = 99582-8) NEGATIVE [facility]. [facility] - HPV High [id number] 00:00:00 Test Item Value Reference Range Interpretation Comments HPV High Risk REPORT (test code = Negative HPV High Risk REPORT) [facility]
--- OUTSIDE RECORDS SUMMARY | 2019-12-18 14:14 | XMS REPORT | Summary of Care ---
:1980 Author Name Erik Grant Ayazdesiree Address [facility] Unavailable , Care Team Providers Name Role Phone ALEJANDRA Glez, MARY Unavailable Unavailable DANITZA Glez, SAMANTHA Unavailable Unavailable BASIL MEADOWS SC, TRACEE Unavailable Unavailable Lorna Mason MD Unavailable Unavailable BASIL MEADOWS SC, TRACEE Unavailable Unavailable ALEJANDRA MEADOWS SC, MARY HUMPHRIES Unavailable Unavailable Unavailable Unavailable Unavailable [...] Z87.09) Status: Resolved Procedures Procedure Dates Details [QL] CBC (INCLUDES DIFF/PLT) Date: 05-Dec-2019 [QL] CMP W/EGFR Date: 05-Dec-2019 [QL] HEMOGLOBIN A1c Date: 05-Dec-2019 [QL] LIPID PANEL Date: 05-Dec-2019 [QL] T4, FREE Date: 05-Dec-2019 [QL] TSH, 3RD GENERATION Date: 05-Dec-2019 [Q] HEPATITIS B SURFACE ANTIGEN W/REFL CONFIRM Date: 2019 [Q] HIV-1/2 Antigen and Antibodies, Fourth Generation, Date: 05-Dec-2019 with Reflexes [Q] RPR (MONITOR) W/REFL TITER Date: 05-Dec-2019 [QL] HEPATITIS C ANTIBODY Date: 05-Dec-2019 [Q] CHLAMYDIA/N. GONORRHOEAE RNA, TMA Date: 05-Dec-2019 [QL] BV/ VAGINITIS PANEL DNA PROBE AFFIRM Date: 05-Dec-2019 [facility]ammo Screening Chang [id number] Date: [...] (finding) Vital Signs Date Test Result Details :07 Systolic blood pressure 127 mm[Hg] Status: Comments: [...] a day? Results Date Description Value Details Results not documented Plan of Care Name Dates Details Planned Observations Planned Goals not documented Interventions Provided Medication ChangesvalACYclovir HCl - 500 MG Oral Tablet - Renew Labs/Procedures/Imaging[Q] CHLAMYDIA/N. GONORRHOEAE RNA, TMA; To Be Done: 05 Dec 2019[Q] HEPATITIS B SURFACE ANTIGEN W/REFL CONFIRM; To Be Done: 05 Dec 2019[Q] HIV-1/2 Antigen and Antibodies, Fourth Generation, with Reflexes; To Be Done: 05 Dec 2019[Q] RPR (MONITOR) W/REFL TITER; To Be Done: 05 Dec 2019[QL] BV/ VAGINITIS PANEL DNA PROBE AFFIRM; To Be Done: 05 Dec 2019[QL] CBC (INCLUDES DIFF/PLT); To Be Done: 05 Dec 2019[QL] CMP W/EGFR; To Be Done: 05 Dec 2019[QL] HEMOGLOBIN A1c; To Be Done: 05 Dec 2019[QL] HEPATITIS C ANTIBODY; To Be Done: 05 Dec 2019[QL] LIPID PANEL; To Be Done: 05 Dec 2019[QL] T4, FREE; To Be Done: 05 Dec 2019[QL] TSH, 3RD GENERATION; To Be Done: 05 Dec 2019MA Digital Mammo Screening Chang [id number]; To Be Done: 05 Dec 2019Discussion/SummaryNormal exam. Fasting labs ordered.STD screen ordered.Valtrex ordered.Mammogram ordered.RTC in [...]
--- NOTE | 2019-12-19 10:47 | OP ---
Surgeon: Kobi Gutierrez MD Preoperative Diagnosis: Scars and hypermastia status post breast lift with explantation. Postoperative Diagnosis: Scars and hypermastia status post breast lift with explantation. Procedure: Scar revision of the breast and fat transfer, abdomen and flank. Anesthesia: General. Description Of Procedure: After satisfactory induction of general anesthesia, the patient was prepped with DuraPrep, dry sterile drapes applied in the usual manner. The patient had incision made in the umbilical area and anterior iliac spine bilaterally with 15 blade. Then 2.5 mm cannula was introduced. Fluid was transferred into the right flank, left flank and abdomen. Approximately 2 L total were infused. The patient then aspiration of right flank 300 out, left flank 200 out, upper abdomen 250 out, right abdomen 200, the left abdomen 300. This was done with 4 mm cannula. Fat was allowed to gravitate. Umbilical wound was closed with 4-0 PDS suture. Attention was then turned to the breast incisions. they were incised and then closed in layers using 3-0 Vicryl first. After 3-0 Vicryl closure in both breasts, then the fat was transferred. The right breast had 225 cc transferred and left breast 150 cc. This was transferred via 3 mm cannula. The wounds were then closed with a running 3-0 PDS suture, tied in certer, Steri-Strips, and abdominal binder was placed in the abdomen. Fluffs and Edward wrap over the breast. The patient tolerated procedure well and returned to Recovery. DAGMAR/MANDO Voice ID: [id number] Report ID: [id number] REUBEN
== END 2019-12-12 14:15 | disposition home or self-care (01) ==
LOC: OR 08:02
PROVIDERS: ATTEND Specialist
PROC: 0HW Skin and Breast, Revision (ICD-10-PCS; 2019-12-12)
PROC: 0H0V37Z Alteration of Bilateral Breast with Autologous Tissue Substitute, Percutaneous Approach (ICD-10-PCS; 2019-12-12)
PROC: 0HW Skin and Breast, Revision (ICD-10-PCS; principal; 2019-12-12 09:00)
DX: L90.5 Scar conditions and fibrosis of skin (principal); N62 Hypertrophy of breast
CPT/HCPCS: 11406; 15771; 15772 ×7; 81025; J2704; J0171 ×3; J2550; J1200; J2250; J3010; J1100; J2175; J1170 ×2; J2710; J0690; J7120 ×2; J2405 ×2